=== PATIENT | male | born 1960 | race Caucasian/White ===

== ENCOUNTER 2025-04-20 14:45 | Outpatient (OUT) | payer MEDICARE, SELFPAY ==
--- OUTSIDE RECORDS SUMMARY | 2024-07-25 06:00 | XMS_ITS ---
Author Organization [facility] in [place] Address [address] [place] [address] Care Team Providers Care Route Sales Trainee Name Role Phone Prabhakar Gooden MD Primary Care Provider Teodora Stewart Unavailable [phone] Allergies Allergen (clinical drug ingredient) Drug/Non Drug Allergy documented on EMR Reaction Allergy Type Onset Date Status Lortab (acetaminophen-hydroco done) Unknown Drug Allergy Active metformin Metformin HCl Unknown Drug Allergy Act marleny Percocet (acetaminophen-oxycodo ne) Unknown Drug Allergy Active REASON FOR VISIT Nail Care Medications Medication SIG (Take, Route, Frequency, Duration) Notes Start Date End Date Status Aspirin 81 mg DAILY 10/11/2013 Activ e Tamsulosin HCl 0.4 mg 2 capsules Orally DAILY 10/11/2013 Active Toujeo SoloStar 300 UNIT/ML as directed Subcutaneous Active Allopurinol 300 mg 1 tablet DAILY Active Atorvastatin Calcium 20 MG 1 tablet Orally Once a day Active Memantine HCl 10 MG take 1 tablet by sierra twice a day for 30 Active HumaLOG 100 UNIT/ML Subcutaneous sliding scale Active Lisinopril 10 mg 1 tablet DAILY Active Ezetimibe 10 MG 1 tablet Orally Once a day Active Finasteride 5 MG 1 tablet Orally Once a day Active Clobetasol Propionate 0.05 % 1 application Externally Twice a day Active Social History Tobacco Use: Social History Observation Description Date Details (start date - stop date) Former Smoker NA - NA Tobacco Use/Smoking Question Answer Notes Patient is a former smoker How long has it been since you last smoked? 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 ; Dementia F03.90 ; Frequent falls R29.6 and Gait disturbance R26.9 Assessments Encounter Date Diagnosis (ICD Code) Assessment Notes Treatment Notes Treatment Clinical Notes Section Notes 07/25/2024 Type 2 diabetes mellitus with diabetic neuropathy, unspecified (ICD-10 - E11.40) 07/25/2024 Cognitive deficit S/P CVA (cerebrovascular accident) (ICD-10 - I69.319) 07/25/2024 Right-sided Zafar's palsy (ICD-10 - G51.0) 07/25/2024 Dementia (ICD-10 - F03.90) 07/25/2024 Frequent falls (ICD-10 - R29.6) 07/25/2024 Gait disturbance (ICD-10 - R26.9) Plan Of Treatment Next Appt Details Follow Up: 3 Months, Reason: Progress Notes * Gera WAHL ADOB:[birth year] (63 yo M)Acc No.[id number]:07/25/2024 Nurse Visit Patient: Isidro ISIDRO Gera hZu Provider: Isidro Boothe PA-C :1960 A ge:63 Y S ex:Male Date:07/25/2024 Address:[facility] [address] [place], [id number] Pcp:Prabhakar Gooden MD Check In:09:48 AM BAYLEECheck O ut:10:19 AM EST Subjective: * Chief Complaints: * N ail Care * HPI: G eneral: Patient in office today for nail care. Patients nails were trimmed and filed down to his liking without incident. * Active Problem List F03.90 Dementia Modified On:07/06/2019 Status:confirmed I69.31 CVA, old, cognitive deficits Modified On:12/27/2017 Status:confirmed Z86.61 History of meningiti s Modified On:01/27/2023 Status:confirmed R26.9 Gait disturbance Modified On:12/24/2015U Status:confirmed I69.319 Cognitive deficit S/ P CVA (cerebrovascular accident) Modified On:01/27/2023U Status:confirmed I65.23 Bilateral carotid ar sophie stenosis Modified On:04/21/2022 Status:confirmed Z86.73 History of stroke Modified On:07/06/2019 Status:confirmed G51.0 Zafar's palsy Modified On:05/04/2019 Status:confirmed F01.50 Vascular dementia wi thout behavioral disturbance Modified On:06/07/2019 Status:confirmed Z86.69 History of Zafar's pa lsy Modified On:07/06/2019 Status:confirmed R56.9 Seizures Modified On:07/06/2019 Status:confirmed R26.89 Imbalance Modified On:01/27/2023 Status:confirmed H90.3 Sensorineural hearin g loss (SNHL) of both ears Modified On:04/24/2021 Status:confirmed H91.90 Hearing loss, unspec ified hearing loss type, unspecified laterality Modified On:04/21/2022 Status:confirmed R29.6 Frequent falls Modified On:01/27/2023 Status:confirmed E11.40 Type 2 diabetes maksim itus with diabetic neuropathy, unspecified Modified On:04/28/2024 Status:confirmed * Medical History: * Surgical History: g allbladder knee replacement 10/29/2015Bowel 12/2015left knee replacment 07/2016left knee scope 2007testicle cancer 2008brain biopsy 2012 * [facility] Diagno [facility]ic [facility]: [facility] 11/28/21 * Family History: F ather: , diagnosed with Diabetes mellitus without mention of complication, type II or unspecified type, not stated as uncontrolled. M other: alive. 4 brother(s) . . Family history of cancer, diabetes mellitus No history of Dementia and Alzheimer's in his family history. * Social History: T obacco Use: T obacco Use/Smoking P atient is a f ormer smoker H ow long has it been since you last smoked??> 10 years * Medications: T akingAllopurinol 300 mg tablet 1 tablet DAILY Aspirin 81 mg DAILY Atorvastatin Calcium 20 MG Tablet 1 tablet Orally Once a day Clobetasol Propionate 0.05 % Cream 1 application Externally Twice a day Ezetimibe 10 MG Tablet 1 tablet Orally Once a day Finasteride 5 MG Tablet 1 tablet Orally Once a day HumaLOG(Insulin Lispro) 100 UNIT/ML Solution Subcutaneous , Notes to Pharmacist: sliding scaleLisinopril 10 mg tablet 1 tablet DAILY Memantine HCl 10 MG Tablet take 1 tablet by mouth twice a day Tamsulosin HCl 0.4 mg capsule 2 capsules Orally DAILY Toujeo SoloStar(Insulin Glargine (1 Unit Dial)) 300 UNIT/ML Solution Pen-injector as directed Subcutaneous Taking Allopurinol 300 mg tablet 1 tablet DAILY Taking Aspirin 81 mg DAILY Taking Atorvastatin Calcium 20 MG Tablet 1 tablet Orally Once a day Taking Clobetasol Propionate 0.05 % Cream 1 application Externally Twice a day Taking Ezetimibe 10 MG Tablet 1 tablet Orally Once a day Taking Finasteride 5 MG Tablet 1 tablet Orally Once a day Taking HumaLOG(Insulin Lispro) 100 UNIT/ML Solution Subcutaneous , Notes to Pharmacist: sliding scaleTaking Lisinopril 10 mg tablet 1 tablet DAILY Taking Memantine HCl 10 MG Tablet take 1 tablet by mouth twice a day Taking Tamsulosin HCl 0.4 mg capsule 2 capsules Orally DAILY Taking Toujeo SoloStar(Insulin Glargine (1 Unit Dial)) 300 UNIT/ML Solution Pen-injector as directed Subcutaneous * Allergies: L ortab (acetaminophen-hydrocodone): AllergyPercocet 10/325 (acetaminophen- oxycodone): AllergyMetformin HClno[Allergies Verified] Objective: * Vitals: W t:212lbs, Ht: 65.5 in, Temp:97.3F, HR:94/min, BMI:34.74Index, Pain scale:01-10, Ht-cm: 166.37 cm, Wt-k.16 kg. Assessment: * Assessment: 1. T ype 2 diabetes mellitus with diabetic neuropathy, unspecified - E11.40 (Primary) 2 .?Cognitive deficit S/P CVA (cerebrovascular accident) - I69.319 3 . R ight-sided Zafar's palsy - G51.0 4 . D ementia - F03.90 5 . F requent falls - R29.6 6 . G ait disturbance - R26.9 Plan: * Treatment: * Procedure Codes: 1 1721 DEBRIDE.NAILS;SIX OR MORE * Follow Up: 3 Months * * Sign off status: Completed Visit Status: C HK (Check Out) true * Provider: Isidro Boothe PA-C Date: 0 07/25/2024 [facility] julien/Eunice/eTransmitting on: 0 04/20/2025 02:48 PM EDT History and Physical Notes * HPI (History of Present Illness) Category Sub-Category Detail Notes Category Not es General Patient in offi ce today for nail care. Patients nails were trimmed and filed down to his liking without incident.
--- OUTSIDE RECORDS SUMMARY | 2024-10-21 06:00 | XMS_ITS ---
Author Organization [facility] in [place] Address [address] [place] [address] Care Team Providers Care Head Scorer Name Role Phone Prabhakar Gooden MD Primary Care Provider Roxanaa Luca Ozuna Unavailable [phone] REASON FOR VISIT toe nail trim Encounters Encounter Location Date Provider Diagnosis [facility] (PODIATRY) [address] [place] [address] [place] [address] 10/21/2024 Luca Moran Plan Of Treatment No Information Progress Notes * Gera WAHL ADOB:[birth year] (63 yo M)Acc No.[id number]:10/21/2024 Nurse Visit Patient: Esteban GARCIASnis Marko Provider: Juan Moran DPM, MS :1960 A ge:63 Y S ex:Male Date:10/21/2024 Address[address] [place], [id number] Pcp:Prabhakar Gooden MD Check In:10:12 AM EST Subjective: * Chief Complaints: * 1 . Toe nail trim. * HPI: G eneral: All nine of his toenails were trimmed and filed to patient's satisfaction without incident. Pt is diabetic, denies having neuropathy. * Active Problem List F03.90 Dementia Modified On:07/06/2019W/U Status:confirmed I69.31 CVA, old, cognitive deficits Modified On:12/27/2017W/U Status:confirmed Z86.61 History of meningiti s Modified On:01/27/2023W/U Status:confirmed R26.9 Gait disturbance Modified On:12/24/2015U Status:confirmed I69.319 Cognitive deficit S/ P CVA (cerebrovascular accident) Modified On:01/27/2023 Status:confirmed I65.23 Bilateral carotid ar sophie stenosis [...] unspecified Modified On:04/28/2024 Status:confirmed * Medical History: Objective: * Vitals: Assessment: Plan: * Treatment: * * Sign off status: Completed Visit Status: A RR (Check-In) true * Provider: Juan Moran DPM, MS Date: 1 12/21/2023 Generated for Crow victoria/Eunice/Sajanitting on: 0 04/20/2025 02:47 PM EDT History and Physical Notes * HPI (History of Present Illness) Category Sub-Category Detail Notes Category Not es General All nine of his toenails were trimmed and filed to patient's satisfaction without incident. Pt is diabetic, denies having neuropathy.
--- OUTSIDE RECORDS SUMMARY | 2025-01-19 05:30 | XMS_ITS ---
Author Organization [facility] in [place] Address [address] [place] [address] Care Team Providers Care Support Engineer Name Role Phone Prabhakar Gooden MD Primary Care Provider Unavaila Teodora Stiles Unavailable [phone] REASON FOR VISIT nail trim Vital Signs Temperature 97.4 degrees Fahrenheit 01/19/20 Heart Rate 95 /min 01/19/2025 Height 65.5 in 01/19/2025 Oximetry 96 % 01/19/2025 Encounters Encounter Location Date Provider Diagnosis [facility] (PODIATRY) [address] [place] [address] [place] [address] 01/19/2025 Teodora Boothe Type 2 diabetes mellitus with diabetic neuropathy, unspecified E11.40 Assessments Encounter Date Diagnosis (ICD Code) Assessment Notes Treatment Notes Treatment Clinical Notes Section Notes 01/19/2025 Type 2 diabetes mellitus with diabetic neuropathy, unspecified (ICD-10 - E11.40) Plan Of Treatment No Information Progress Notes * Gera WAHL ADOB:[birth year] (64 yo M)Acc No.[id number]:01/19/2025 Nurse Visit Patient: Isidro FELIX Gera Zhu Provider: Isidro Boothe PA-C :1960 A ge:64 Y S ex:Male Date:01/19/2025 Address:[address], [id number] Pcp:Prabhakar Gooden MD Check In:09:21 AM ESTCheck O ut:11:27 AM EST Subjective: * Chief Complaints: * N ail trim * HPI: G eneral: Patient in office today for nail care. All nine of his toenails were trimmed and filed to patient's satisfaction without incident. Pt is diabetic. * Active Problem List F03.90 Dementia Modified [...] Status:confirmed * Medical History: * Surgical History: * Hospitalization/Major Diagno stic Procedure: * Medications: Objective: * Vitals: H t: 65.5 in, Temp:97.4F, HR:95/min, Pain scale:01-10, Oxygen sat %:96%, Ht-cm: 166.37 cm. Assessment: * Assessment: 1. T ype 2 diabetes mellitus with diabetic neuropathy, unspecified - E11.40 (Primary) ? Plan: * Treatment: * Procedure Codes: * * Sign off status: Completed Visit Status: C HK (Check Out) true * Provider: Isidro Boothe PA-C Date: 0 01/19/2025 Generated for [facility] ng/Eunice/eTransmitting on: 0 04/20/2025 02:48 PM EDT History and Physical Notes * HPI (History of Present Illness) Category Sub-Category Detail Notes Category Not es General Patient in offi ce today for nail care. All nine of his toenails were trimmed and filed to patient's satisfaction without incident. Pt is diabetic.
--- OUTSIDE RECORDS SUMMARY | 2025-04-14 10:28 | XMS_ITS | Encounter Summary ---
Author Organization [employer] tem Address [id number] [address] [place] [address] Care Team Providers Care Service Administrator Name Role Phone Prabhakar Gooden MD Primary Care Provider [phone] Reason for Referral * Diagnostic Imaging (Emergency) - Closed Specialty Diagnoses / Procedures Referred By Contac t Referred To Contact Radiology Diagnoses Cerebrovascular accident (CVA), unspecified mechanism (CMS-HCC) Procedures CT angiogram carotid Fatoumata Velazquez PA-C [address] [place] [address] Phone: tel: fax: Referral ID Status Reason Start Date Expiration Date Visits Re quested Visits Authorized [id number] Closed 03/29/2025 03/29/2026 1 1 * Diagnostic Imaging (Emergency) - Closed Specialty Diagnoses / Procedures Referred By Contac t Referred To Contact Radiology Diagnoses Cerebrovascular accident (CVA), unspecified mechanism ([facility]) Procedures CT angiogram head Fatoumata Velazquez PA-C [address] [place] [address] Phone: tel: fax: Referral ID Status Reason Start Date Expiration Date Visits Re quested Visits Authorized [id number] Closed 03/29/2025 03/29/2026 1 1 Reason for Visit * Diagnostic Imaging (Emergency) - Closed Specialty Diagnoses / Procedures Referred By Contac t Referred To Contact Radiology Diagnoses Cerebrovascular accident (CVA), unspecified mechanism ([facility] Procedures CT angiogram Fatoumata Felix PA-C [address] [place] [address] Phone: tel: fax: Referral ID Status Reason Start Date Expiration Date Visits Re quested Visits Authorized [id number] Closed 03/29/2025 03/29/2026 1 1 Encounter Details Date Type Department Care Team (Latest Contact Info) Description 04/14/2025 10:28 AM EDT - 04/14/2025 11:59 PM EDT Hospital Encounter [facility] - CT Imaging [address] [place] [id number] Cerebrovascular accident (CVA), unspecified mechanism ([facility]) Discharge Disposition: Home Social History Tobacco Use Types Packs/Day Years Used Date Smoking Tobacco: Former Cigarettes Smokeless Tobacco: Never Alcohol Use Standard Drinks/Week Comments Not Currently 0 (1 standard drink = 0.6 oz pur e alcohol) PHQ-2 Answer Date Recorded Total Score 0 01/24/2025 Childcare Answer Date Recorded Childcare Unknown 05/05/2019 Employment Answer Date Recorded Employment Unknown 05/05/2019 Hunger Screening Answer Date Recorded Within the past 12 months we worried whether our food would run out before we got money to buy more. Never True 03/31/2025 Within the past 12 months th e food we bought just didn't last and we didn't have money to get more. Never True 03/31/2025 Purpose - Life Answer Date Recorded Purpose and direction in life Unknown Sex and Gender Information Value Date Recorded Sex Assigned at Not on file Legal Sex Male 11:38 AM EDT Gender Identity Not on file Sexual Orientation Not on file documented as of this encounter Medications at Time of Discharge allopurinoL (ZYLOPRIM) 300 mg tablet Take 1 tablet (300 mg total) by mouth in the morning. aspirin 81 mg Take 1 tablet (81 mg total) by mouth in the morning. blood sugar diagnostic (Outernet ULTRA TEST) stripIndications :Type 2 diabetes mellitus with hyperglycemia, with long-term current use of insulin ([facility] USE ONE STRIP TO TEST TWICE A DAY 175 strip 3 12/26/2024 ezetimibe (ZETIA) 10 mg tabletIndication s:Mixed hyperlipidemia,S tatin intolerance,Hist ory of stroke TAKE ONE TABLET BY MOUTH EVERY MORNING 90 tablet 3 12/04/2024 finasteride (PROSCAR) 5 mg tablet TAKE ONE TABLET BY MOUTH EVERY MORNING 90 tablet 1 12/30/2024 flash glucose sensor (FREESTYLE KEYSHA 2 SENSOR) kitIndications:T ype 2 diabetes mellitus without complication, with long-term current use of insulin ([facility]) APPLY SENSOR TO SKIN FOR CONTINUOUS BLOOD SUGAR MONITORING, REPLACE EVERY 14 DAYS 6 kit 3 02/27/2025 FREESTYLE KEYSHA 2 READER miscIndications: Type 2 diabetes mellitus with hyperglycemia, with long-term current use of insulin ([facility]) To use with Freestyle Keysha System 1 each 03/31/2025 insulin lispro (HumaLOG) 100 unit/mL insulin penIndications:T ype 2 diabetes mellitus with hyperglycemia, with long-term current use of insulin ([facility]) INJECT 9-11 UNITS UNDER THE SKIN THREE TIMES A DAY PLUS SLIDING SCALE, UP TO 70 UNITS DAILY . EACH PEN EXPIRES 28 AFTER FIRST PUNCTURE 30 mL 11 12/26/2024 lisinopriL (PRINIVIL,ZESTRI L) 10 mg tablet take 1 tablet by mouth daily 90 tablet 2 07/04/2024 memantine (NAMENDA) 10 mg tablet Take 1 tablet (10 mg total) by mouth in the morning and 1 tablet (10 mg total) before bedtime. pantoprazole (PROTONIX) 40 mg EC tabletIndication s:Chronic cough Take 1 tablet (40 mg total) by mouth in the morning. 30 tablet 03/17/2025 pen needle, diabetic (DROPLET PEN NEEDLE) 32 gauge x 5/32 needle USE UP TO 3 NEEDLES DAILY TO INJECT 100 each 6 11/01/2024 tamsulosin (FLOMAX) 0.4 mg capsuleIndicatio ns:Urinary retention TAKE 1 CAPSULE BY MOUTH TWICE A DAY 180 capsule 1 11/28/2024 tiotropium (SPIRIVA) 18 mcg per inhalation capsuleIndicatio ns:Chronic cough Place 1 capsule into inhaler and inhale in the morning. 30 capsule 2 03/17/2025 KERRI SALINASAR U-300 INSULIN 300 unit/mL (1.5 mL) insulin penIndications:T ype 2 diabetes mellitus with hyperglycemia, with long-term current use of insulin ([facility]) INJECT UP TO 50 UNITS UNDER THE SKIN EVERY MORNING 9 mL 12 03/31/2025 documented as of this encounter Plan of Treatment Upcoming Encounters Date Type Department Care Team (Late st Contact Info) Description 08/21/2025 8:45 AM EDT Office Visit [facility] Adult Endocrinology, A Department of [facility] [address] [facility] [address] [place] [address] Marcos Enriquez MD [address] [facility] [place] [address] 10/04/2025 1:15 PM EST Office Visit [facility] [address] [place] [address] [place] [address] Michael Solano MD [address] [place] [address] documented as of this encounter Goals Goal Patient Goal Type Associated Problems Recent Progress Patient-Stated? Author Exercise 150 minutes per week (moderate activity) Exercise No Humaira Jameson RN Note: Evaluation of progress towards goal: newly established goal Fasting Blood Glucose 70-130 Result Component No Humaira Jameson RN Note: Newly established goal documented as of this encounter Procedures Procedure Name Priority Date/Time Associated Diagnosis Comments CT CTA HEAD Routine 04/17/2025 3:14 PM EDT Cerebrovascular accident (CVA), unspecified mechanism ([facility]) CT CTA CAROTID Routine 04/17/2025 3:14 PM EDT Cerebrovascular accident (CVA), unspecified mechanism ([facility]) documented in this encounter Results * CT angiogram carotid (04/17/2025 3:14 PM EDT) Anatomical Region Laterality Modality Neuro, Neck, Vascular, Neuro [place] N/A Computed Tomography 04/19/2025 8:15 AM EDT Narrative 04/19/2025 8:24 AM EDT CLINICAL INFORMATION: Cerebrovascular accident (CVA), unspecified mechanism (CMS-HCC) TECHNIQUE: CT angiogram performed following intravenous administration of nonionic intravenous contrast. Coronal and sagittal and 3-D volume rendered maximum intensity projection images generated and reviewed under concurrent physician supervision. Automated exposure control utilized. The [place] Symptomatic Carotid Endarterectomy Trial (NASCET) method for calculating the degree of stenosis was utilized for stenosis measurements. All CT scans at this facility use dose modulation, iterative reconstruction, and/or weight based dosing when appropriate to reduce radiation dose to as low as reasonably achievable. COMPARISON: 04/26/2019 FINDINGS: The visualized portions of the aortic arch are patent. The origins of the great vessels are patent. Atherosclerotic calcifications are seen within the origins and great vessels and aortic arch. On the left, the left common carotid artery is patent. There are dense atelectatic calcifications in the left common carotid artery bifurcation extending to the origins of the left internal carotid artery. This is producing a 50% stenosis in the origin of the left internal carotid artery. The remainder of the left internal carotid arteries patent. Left external carotid arteries patent. On the right, the right common, internal, and external carotid arteries are patent. Atherosclerotic calcifications are seen however no hemodynamically significant stenoses are identified. The vertebrals are patent bilaterally. Limited images of the lung apices show right apical pleural thickening, similar to the prior study. IMPRESSION: * 50% stenosis in the origin of the left internal carotid artery, increased in severity since the previous examination dated 04/26/2019. * Otherwise normal CT angiogram of the carotid and vertebral arteries. Finalized by Yuri Montoya MD on 04/19/2025 8:24 AM Procedure Note Yuri Montoya MD - 04/19/2025 CLINICAL INFORMATION: Cerebrovascular accident (CVA), unspecified mechanism (CMS-HCC) TECHNIQUE: CT angiogram performed following intravenous administration of nonionicintravenous contrast. Coronal and sagittal and 3-D volume rendered maximum intensity projectionimages generated and reviewed under concurrent physician supervision. Automated exposure control utilized. The [place] SymptomaticCarotid Endarterectomy Trial (NASCET) method for calculating the degree ofstenosis was utilized for stenosis measurements. All CT scans at this facility use dose modulation, iterativereconstruction, and/or weight based dosing when appropriate to reduceradiation dose to as low as reasonably achievable. COMPARISON: 04/26/2019 FINDINGS: The visualized portions of the aortic arch are patent. The origins of thegreat vessels are patent. Atherosclerotic calcifications are seen withinthe origins and great vessels and aortic arch. On the left, the left common carotid artery is patent. There are denseatelectatic calcifications in the left common carotid artery bifurcationextending to the origins of the left internal carotid artery. This isproducing a 50% stenosis in the origin of the left internal carotidartery. The remainder of the left internal carotid arteries patent. Left externalcarotid arteries patent. On the right, the right common, internal, and external carotid arteriesare patent. Atherosclerotic calcifications are seen however nohemodynamically significant stenoses are identified. The vertebrals are patent bilaterally. Limited images of the lung apices show right apical pleural thickening,similar to the prior study. IMPRESSION: * 50% stenosis in the origin of the left internal carotid artery,increased in severity since the previous examination dated 04/26/2019. * Otherwise normal CT angiogram of the carotid and vertebral arteries. Finalized by Yuri Montoya MD on 04/19/2025 8:24 AM Fatoumata Velazquez PA-C [facility] Final Result * CT angiogram head (04/17/2025 3:14 PM EDT) Anatomical Region Laterality Modality Head, Neuro, Vascular, Head and Neck, Neuro [place] ra N/A Computed Tomography 04/19/2025 7:55 AM EDT Narrative 04/19/2025 7:[address] angiogram head with contrast History: Cerebrovascular accident (CVA), unspecified mechanism ([facility]) Technique: CT angiogram of the head was performed following intravenous administration of 100 cc Omnipaque 350 nonionic intravenous contrast. 3-D maximum intensity projection images generated and reviewed under concurrent physician supervision. Arterial blood flow was measured to assist the stroke clinical team in the diagnosis of large vessel occlusion in patients undergoing screening for acute ischemic stroke using Rapid AI software when clinically indicated. Automated exposure control was utilized. All CT scans at this facility use dose modulation, iterative reconstruction, and/or weight based dosing when appropriate to reduce radiation dose to as low as reasonably achievable. Findings: CTA of the head was obtained. Intravenous contrast was administered. Post processed three-dimensional maximum intensity projection imaging was acquired and evaluated. There are codominant vertebral arteries without vertebral basilar stenosis. Posterior cerebral arteries appear symmetric. Mild carotid siphon atherosclerotic changes appreciated. There appears to be 3 mm left M2 aneurysm just cephalad to sylvian fissure. No vascular truncation or occlusion appreciated. Anterior cerebral and middle cerebellar arteries normal in caliber. Juarez-white differentiation appears intact. No intracranial hemorrhage to within the limits this exam. No mass or midline shift. Ventricles normal in caliber. Impression: 3 mm left M2 aneurysm. No evidence of occlusion or significant stenosis. Finalized by Edwar Coned MD on 04/19/2025 7:58 AM Procedure Note Edwar Conde MD - 04/19/2025 CT angiogram head with contrast History: Cerebrovascular accident (CVA), unspecified mechanism ([facility]) Technique: CT angiogram of the head was performed following intravenousadministration of 100 cc Omnipaque 350 nonionic intravenous contrast. 3-Dmaximum intensity projection images generated and reviewed underconcurrent physician supervision. Arterial blood flow was measured toassist the stroke clinical team in the diagnosis of large vessel occlusion in patientsundergoing screening for acute ischemic stroke using Rapid AI softwarewhen clinically indicated. Automated exposure control was utilized. All CT scans at this facility use dose modulation, iterativereconstruction, and/or weight based dosing when appropriate to reduceradiation dose to as low as reasonably achievable. Findings: CTA of the head was obtained. Intravenous contrast was administered. Postprocessed three-dimensional maximum intensity projection imaging wasacquired and evaluated. There are codominant vertebral arteries withoutvertebral basilar stenosis. Posterior cerebral arteries appear symmetric.Mild carotid siphon atherosclerotic changes appreciated. There appears to be 3mm left M2 aneurysm just cephalad to sylvian fissure. No vasculartruncation or occlusion appreciated. Anterior cerebral and middlecerebellar arteries normal in caliber. Juarez-white differentiation appearsintact. No intracranial hemorrhage to within the limits this exam. No mass or midlineshift. Ventricles normal in caliber. Impression: 3 mm left M2 aneurysm. No evidence of occlusion or significant stenosis. Finalized by Edwar Conde MD on 04/19/2025 7:58 AM Fatoumata Velazquez PA-C IMG CT ORDERABLES Final Result documented in this encounter Visit Diagnoses Diagnosis Cerebrovascular accident (CVA), unspecified mechanism ([facility]) documented in this encounter Administered Medications Inactive Administered Medications - up to 3 most recent administrations Medication Order MAR Action Action Date Dose Rate Site iohexoL (OMNIPAQUE) 350 mg iodine/mL injection 100 mL 100 mL, intravenous, Once in imaging, contrast, Starting on Thu04/14/25 at 1029, For 1 dose, VESICANT (RED) Given 04/14/2025 11:04 AM EDT 100 mL sodium chloride 0.9 % flush 10 mL 10 mL, intravenous, As needed, line care, Starting on Thu04/14/25 at 1029 Given 04/14/2025 10:59 AM EDT 10 mL sodium chloride 0.9 % radiology injection 80 mL, intravenous, Once in imaging, pre/post contrast, Starting on Thu04/14/25 at 1029, For 1 dose Given 04/14/2025 11:03 AM EDT 80 mL documented in this encounter Additional Health Concerns Assessment Noted Time PHQ-9 Depression Total Score: 0 01/24/20 25 1:26 PM EST documented as of this encounter Care Teams Service Administrator Relationship Specialty Start Date End Date Prabhakar Gooden MD [address] [place] [address], [address] [place] [address] PCP - General Pediatrics 08/05/24 documented as of this encounter
--- OUTSIDE RECORDS SUMMARY | 2025-04-20 14:47 | XMS_ITS | Encounter Summary ---
Author Organization [facility] Address [facility] [id number] [address] [place] [address] Care Team Providers Care Upholstery Trimmer Name Role Phone Prabhakar Gooden MD Primary Care Provider [phone] Reason for Visit * Reason Comments Med Refill Encounter Details Date Type Department Care Team (Late st Contact Info) Description 09/15/2023 Refill [facility] Internal Medicine/Pediatrics [address] [place] [address] [address] [place] [phone] Prabhakar Gooden MD [address] [place] [address], [address] [place] [address] Social History Tobacco Use Types Packs/Day Years Used Date Smoking Tobacco: Former Smokeless Tobacco: Never Alcohol Use Standard Drinks/Week Comments Not Currently 0 (1 standard drink = 0.6 oz pur e alcohol) PHQ-2 Answer Date Recorded Total Score 0 04/08/2023 Childcare Answer Date Recorded Childcare Unknown 05/05/2019 Employment Answer Date Recorded Employment Unknown 05/05/2019 Purpose - Life Answer Date Recorded Purpose and direction in life Unknown Sex and Gender Information Value Date Recorded Sex Assigned at Not on file Legal Sex Male 11:38 AM EDT Gender Identity Not on file Sexual Orientation Not on file documented as of this encounter Miscellaneous Notes * Telephone Encounter - Eryn Swift CMA - 09/15/2023 6:14 PM EDT Refill request documented in this encounter Plan of Treatment Upcoming Encounters Date Type Department Care Team (Late st Contact Info) Description 08/21/2025 8:45 AM EDT Office Visit [facility] Adult Endocrinology, A Department of [facility] [address] [facility] [address] [place] [address] Marcos Enriquez MD [address] [facility] [place] [address] 10/04/2025 1:15 PM EST Office Visit [facility] [address] [place] [address] [place] [address] Michael Solano MD [address] [place] [address] documented as of this encounter Goals Goal Patient Goal Type Associated Problems Recent Progress Patient-Stated? Author Exercise 150 minutes per week (moderate activity) Exercise No Humaira Jameson, RN Note: Evaluation of progress towards goal: newly established goal Fasting Blood Glucose 70-130 Result Component No Humaira Jameson, RN Note: Newly established goal documented as of this encounter Visit Diagnoses Not on filedocumented in this encounter Additional Health Concerns Infection Onset Date Last Indicated Resolved Time Respiratory Rule-Out 01/28/2025 01/28/2025 025 2:37 AM EST Assessment Noted Time PHQ-9 Depression Total Score: 0 04/08/20 23 9:00 AM EDT documented as of this encounter Care Teams Upholstery Trimmer Relationship Specialty Start Date End Date Prabhakar Gooden MD [address] [place] [address], [address] [place], [place] [id number] PCP - General Pediatrics 08/05/24 documented as of this encounter
--- OUTSIDE RECORDS SUMMARY | 2025-04-20 14:47 | XMS_ITS | Encounter Summary ---
Author Organization [facility] Address [id number] [address] [place] [address] Care Team Providers Care Yarn Man Name Role Phone Prabhakar Gooden MD Primary Care Provider [phone] Encounter Details Date Type Department Care Team (Latest Contact Info) Description 04/14/2025 Travel Social History Tobacco Use Types Packs/Day Years [...] on file documented as of this encounter Plan of Treatment Upcoming Encounters Date Type Department Care Team (Late st Contact Info) Description 08/21/2025 8:45 AM EDT Office Visit [facility] Adult Endocrinology, A Department of [facility] [address] [facility] [address] [place] [phone] Marcos Enriquez MD [address] [facility], [address] [place] [address] 10/04/2025 1:15 PM EST Office Visit [facility] [address] [place] [address] [place] [phone] Michael Solano MD [address] [place], [place] [phone] documented as of this encounter Goals Goal [...] filedocumented in this encounter Additional Health Concerns Assessment Noted Time PHQ-9 Depression Total Score: 0 01/24/20 25 1:26 PM EST documented as of this encounter Care Teams Yarn Man Relationship Specialty Start Date End Date Prabhakar Gooden MD [address] [place] [address], [address] [place], [place] [phone] PCP - General Pediatrics 08/05/24 documented as of this encounter
--- OUTSIDE RECORDS SUMMARY | 2025-04-20 14:47 | XMS_ITS | Encounter Summary ---
Author Organization [facility] tem Address [id number] [address] [place] [address] Care Team Providers Care Telephone Advice Nurse Name Role Phone Prabhakar Gooden MD Primary Care Provider [phone] Encounter Details Date Type Department Care Team (Late Contact Info) Description 08/22/2021 Orders Only [facility] Internal Medicine[facility] [address] [place] [phone] External, Scanning Provider Social History Tobacco Use Types Packs/Day Years Used Date Smoking Tobacco: Former Smokeless Tobacco: Never Alcohol Use Standard Drinks/Week Comments Not Currently 0 (1 standard drink = 0.6 oz pur e alcohol) PHQ-2 Answer Date Recorded Total Score 0 12/13/2020 Childcare Answer Date Recorded Childcare Unknown 05/05/2019 [...] Encounters Date Type Department Care Team (Late Contact Info) Description 08/21/2025 8:45 AM EDT Office Visit [facility] Adult Endocrinology, A Department of [facility] [address] [place] [phone] Marcos Enriquez MD [address] [place] [address] 10/04/2025 1:15 PM EST Office Visit [facility] [address] [place] [address] [address] [place] [address] Michael Solano MD [address] [place] [address] documented as of this encounter Goals Goal [...] Procedure Name Priority Date/Time Associated Diagnosis Comments HEMOGLOBIN A1C Routine 08/22/2021 documented in this encounter Results * (ABNORMAL) Hemoglobin A1c (08/22/2021) External Hemoglobin A1C 9.0(A) 4 - 6 % MANUALLY TRANSCRIBED RESULTS Comment:Result attached to E ndo consult 08/22/21 08/22/2021 us Scanning Provider External LAB BLOOD ORDERABLES Final Result MANUALLY TRANSCRIBED RESULTS documented in this encounter Visit Diagnoses Not on filedocumented in this encounter Additional Health Concerns Infection Onset Date Last Indicated Resolved Time Respiratory Rule-Out 01/28/2025 01/28/2025 025 2:37 AM EST Assessment Noted Time PHQ-9 Depression Total Score: 0 12/13/19 21 3:25 PM EST documented as of this encounter Care Teams Telephone Advice Nurse Relationship Specialty Start Date End Date Prabhakar Gooden MD [address] [place] [address], [address] [place] [address] PCP - General Pediatrics 08/05/24 documented as of this encounter
--- OUTSIDE RECORDS SUMMARY | 2025-04-20 14:47 | XMS_ITS | Encounter Summary ---
Author Organization [facility] tem Address [facility] [id number] [address] [place] [address] Care Team Providers Care Building Wrecker Name Role Phone Prabhakar Gooden MD Primary Care Provider [phone] Reason for Visit * Reason Comments Med Refill Encounter Details Date Type Department Care Team (Late st Contact Info) Description 10/17/2020 Refill [facility] Internal Medicine/Pediatric[facility] [address] [place] [address] [address] [place] [phone] Prabhakar Gooden MD [address] [place] [address], [address] [place] [address] Social History Tobacco Use Types Packs/Day Years Used Date Smoking Tobacco: Former Smokeless Tobacco: Never Alcohol Use Standard Drinks/Week Comments Not Currently 0 (1 standard drink = 0.6 oz pur e alcohol) Childcare Answer Date Recorded Childcare Unknown 05/05/2019 Employment Answer Date Recorded Employment Unknown 05/05/2019 Sex and Gender Information Value Date Recorded Sex Assigned at Not on file Legal Sex Male 11:38 AM EDT Gender Identity Not on file Sexual Orientation Not on file COVID-19 Exposure Response Date Recorded In the last month, have you been in contact with someone who was confirmed or suspected to have Coronavirus / COVID-19? No / Unsure 10/10/2020 12:42 PM EST documented as of this encounter Plan of Treatment Upcoming Encounters Date Type Department Care Team (Late st Contact Info) Description 08/21/2025 8:45 AM EDT Office Visit [facility] Adult Endocrinology, A Department of [facility] [address] [facility] [address] [place] [phone] Marcos Enriquez MD [address] [facility], [address] [place] [address] 10/04/2025 1:15 PM EST Office Visit [facility] [address] [place] [address] [place] [address] [place] [address] Michael Solano MD [address] [place] [address] documented as of this encounter Goals Goal [...] Infection Onset Date Last Indicated Resolved Time COVID-19 Positive 11/28/2020 11/28/2020 12/19/2020 11:13 PM EST Respiratory Rule-Out 01/28/2025 01/28/2025 025 2:37 AM EST documented as of this encounter Care Teams Building Wrecker Relationship Specialty Start Date End Date Prabhakar Gooden MD [address] [place] [address], [address] [place], [place] [id number] PCP - General Pediatrics 08/05/24 documented as of this encounter
--- OUTSIDE RECORDS SUMMARY | 2025-04-20 14:47 | XMS_ITS | Encounter Summary ---
Author Organization [facility] [facility] tem Address [facility] [id number] [address] [place] [address] Care Team Providers Care Admissions Coordinator Name Role Phone Prabhakar Gooden MD Primary Care Provider [phone] Encounter Details Date Type Department Care Team (Late st Contact Info) Description 10/30/2023 Telephone [facility] Internal Medicine/Pediatrics [address] [place] [phone] Soraya Wahl RMA Social History Tobacco Use Types Packs/Day Years [...] got money to buy more. Never True 10/30/2023 Within the past 12 months th e food we bought just didn't last and we didn't have money to get more. Never True 10/30/2023 Purpose - Life Answer Date Recorded Purpose and direction in life Unknown Sex and Gender Information Value Date Recorded Sex Assigned at Not on file Legal Sex Male 11:38 AM EDT Gender Identity Not on file Sexual Orientation Not on file documented as of this encounter Miscellaneous Notes * Telephone Encounter - ANATOLY Onofre - 10/30/2023 1:12 PM EST Patient's , Mikala, called wanting to let you know that the track repair worker started him on medication for his cholesterol. Zetia and evolocumab. She did ask if his AST/ALT results came back better this time. She was advised these numbers have come down to wnl. Please advise if any other changes or recommendations. documented in this encounter Plan of Treatment Upcoming Encounters Date Type Department Care Team (Late st Contact Info) Description 08/21/2025 8:45 AM EDT Office Visit [facility] Adult Endocrinology, A Department of [facility] [address] [facility] [address] [place] [phone] Marcos Enriquez MD [address] [facility], [address] [place] [address] 10/04/2025 1:15 PM EST Office Visit [facility] [address] [place] [address] [address] [facility] [place] [address] Michael Solano MD [address] [place], [place] [id number] documented as of this encounter Goals Goal [...] documented as of this encounter Care Teams Admissions Coordinator Relationship Specialty Start Date End Date Prabhakar Gooden MD [address] [place] [address], [address] [place] [address] PCP - General Pediatrics 08/05/24 documented as of this encounter
--- OUTSIDE RECORDS SUMMARY | 2025-04-20 14:47 | XMS_ITS | Encounter Summary ---
Author Organization [facility] tem Address [facility] [id number] [address] [place] [address] Care Team Providers Care Electrical Laboratory Technician Name Role Phone Prabhakar Gooden MD Primary Care Provider [phone] Reason for Visit * Reason Comments Med Refill Encounter Details Date Type Department Care Team (Late st Contact Info) Description 05/04/2018 Refill [facility] [address] [place] [phone] Michael Solano MD [address] [place], [place] [phone] Urinary retention Social History Tobacco Use Types Packs/Day Years Used Date Smoking Tobacco: Former Sex and Gender Information Value Date Recorded Sex Assigned at Not on file Legal Sex Male 11:38 AM EDT Gender Identity Not on file Sexual Orientation Not on file documented as of this encounter Plan of Treatment Upcoming Encounters Date Type Department Care Team (Late st Contact Info) Description 08/21/2025 8:45 AM EDT Office Visit [facility] Adult Endocrinology, A Department of [facility] [address] [facility] [address] [place] [phone] Marcos Enriquez MD [address] [facility], [address] [place] [address] 10/04/2025 1:15 PM EST Office Visit [facility] [address] [place] [address] [place] [phone] Michael Solano MD [address] [place], [place] [phone] documented as of this encounter Visit Diagnoses Diagnosis Urinary retention Unspecified retention of urine documented in this encounter Additional Health Concerns Infection Onset Date Last Indicated Resolved Time COVID-19 Positive 11/28/2020 11/28/2020 12/19/2020 11:13 PM EST Respiratory Rule-Out 01/28/2025 01/28/2025 025 2:37 AM EST documented as of this encounter Care Teams Electrical Laboratory Technician Relationship Specialty Start Date End Date Prabhakar Godoen MD [address] [place] [address], [address] [place], [place] [phone] PCP - General Pediatrics 08/05/24 documented as of this encounter
--- OUTSIDE RECORDS SUMMARY | 2025-04-20 14:47 | XMS_ITS | Clinical Summary ---
Author Organization [employer] tem Address [id number] [address] [place] [address] Care Team Providers Care Forge Press Operator Name Role Phone Prabhakar Gooden MD Primary Care Provider [phone] Allergies Active Allergy Reactions Criticality Noted Date Comments Dulaglutide Diarrhea 08/19/2021 Hydrocodone-Acetaminophen Itching 05/06/2017 Metformin GI Disturbance 01/24/2021 Semaglutide GI Disturbance 10/21/2021 Oxycodone-Acetaminophen Itching 05/06/2017 Medications aspirin 81 mg Take 1 tablet (81 mg total) by mouth in the morning. Active memantine (NAMENDA) 10 mg tablet Take 1 tablet (10 mg total) by mouth in the morning and 1 tablet (10 mg total) before bedtime. Active lisinopriL (PRINIVIL,ZEST RIL) 10 mg tablet take 1 tablet by mouth daily 90 tablet 2 4 Active allopurinoL (ZYLOPRIM) 300 mg tablet Take 1 tablet (300 mg total) by mouth in the morning. Active pen needle, diabetic (DROPLET PEN NEEDLE) 32 gauge x 5/32 needle USE UP TO 3 NEEDLES DAILY TO INJECT 100 each 6 4 Active tamsulosin (FLOMAX) 0.4 mg capsuleIndicat ions:Urinary retention TAKE 1 CAPSULE BY MOUTH TWICE A DAY 180 capsule 1 4 Active ezetimibe (ZETIA) 10 mg tabletIndicati ons:Mixed hyperlipidemia ,Statin intolerance,Hi story of stroke TAKE ONE TABLET BY MOUTH EVERY MORNING 90 tablet 3 5 Active insulin lispro (HumaLOG) 100 unit/mL insulin penIndications :Type 2 diabetes mellitus with hyperglycemia, with long-term current use of insulin ([facility]) INJECT 9-11 UNITS UNDER THE SKIN THREE TIMES A DAY PLUS SLIDING SCALE, UP TO 70 UNITS DAILY . EACH PEN EXPIRES 28 AFTER FIRST PUNCTURE 30 mL 11 5 Active blood sugar diagnostic (ONETOUCH ULTRA TEST) stripIndicatio ns:Type 2 diabetes mellitus with hyperglycemia, with long-term current use of insulin ([facility]) USE ONE STRIP TO TEST TWICE A DAY 175 strip 3 5 Active finasteride (PROSCAR) 5 mg tablet TAKE ONE TABLET BY MOUTH EVERY MORNING 90 tablet 1 5 Active flash glucose sensor (FREESTYLE KEYSHA 2 SENSOR) kitIndications :Type 2 diabetes mellitus without complication, with long-term current use of insulin ([facility]) APPLY SENSOR TO SKIN FOR CONTINUOUS BLOOD SUGAR MONITORING, REPLACE EVERY 14 DAYS 6 kit 3 5 Active tiotropium (SPIRIVA) 18 mcg per inhalation capsuleIndicat ions:Chronic cough Place 1 capsule into inhaler and inhale in the morning. 30 capsule 2 5 Active pantoprazole (PROTONIX) 40 mg EC tabletIndicati ons:Chronic cough Take 1 tablet (40 mg total) by mouth in the morning. 30 tablet 5 Active FREESTYLE KEYSHA 2 READER miscIndication s:Type 2 diabetes mellitus with hyperglycemia, with long-term current use of insulin ([facility]) To use with Freestyle Keysha System 1 each 5 Active TOUJEO SOLOSTAR U-300 INSULIN 300 unit/mL (1.5 mL) insulin penIndications :Type 2 diabetes mellitus with hyperglycemia, with long-term current use of insulin ([facility]) INJECT UP TO 50 UNITS UNDER THE SKIN EVERY MORNING 9 mL 12 5 Active insulin glargine 300 unit/mL (TOUJEO SOLOSTAR U-300 INSULIN) 300 unit/mL (1.5 mL) insulin penIndications :Type 2 diabetes mellitus without complication, with long-term current use of insulin ([facility]) INJECT 28 UNITS UNDER THE SKIN EVERY MORNING AND 14 UNITS EVERY EVENING 9 mL 12 5 03/31/20 25 Discontinu ed(Reorder ) Active Problems Problem Noted Date Diagnosed Date Bladder outlet obstruction 06/16/2024 Presence of colostomy 04/27/2024 Mixed hyperlipidemia 01/05/2023 Elevated alkaline phosphatase level 05/13/2017 Overview (05/13/2017): ==== 05/13/2017 ==== New problem, additional workup planned. Alk: phosphatase slightly elevated. Will repeat that in about 6 weeks or so with an alpha fetoprotein return to clinic. Chest x-ray as well. Assessment & Plan (06/24/2017 4:10 PM EDT): Has been pretty stable. Over 3 years. I wrote down the information. Patient is to contact Dr. Gooden. Urinary retention 05/08/2017 Overview (11/16/2024): ==== 11/16/2024 ==== urinating very well. He is still on maximal medical therapy. Plan: Continue on with tamsulosin as well as finasteride for the next 6 months patient may taper off. Will see him back in 9-12 months ====08/24/24====s/p Urolift 08/03/24. Retention following procedure but has been fine since void trial. He reports 80-90% improvement in symptoms. PVR 10 ==== 06/06/2024 ==== cystoscopy demonstrates relatively open bladder neck suitability for UroLift. Some lateral lobe hypertrophy. We discussed observation, UroLift, Transurethral resection of the prostate. Natural history of all 3 discussed. Risks and benefits discussed as well. His most interested in pursuing UroLift to see if we can unload as bladder a little bit more to help him urinate. Plan: UroLift ==== 03/30/2024 ==== PVR now slightly improved to 167. His on maximal medical therapy. Patient feels like a restraining more to urinate. PLAN: Should get up-to-date urodynamics as well as cystoscopy. See if any intervention at the outlet be helpful. ==== 11/09/2023 ==== Established problem, worsening. Postvoid residual 307 AUA symptom Score 4/4. Patient really can not articulate the apparent satisfaction but he does tolerate the medication. Will add finasteride patient double void. Recheck PVR 4 months ==== 11/05/2022 ==== AUA symptom Score 14/2. Doing very well. Tolerating tamsulosin 2 tablets a day. Refilled today. ==== 10/21/2021 ==== AUA Symptom Score 16/2. Refilled tamsulosin recently. ==== 10/10/2020 ==== postvoid residual 62 cc. Return clinic 1 year. 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 CMG flow study asensate bladder delayed sensation 525 cc. Normal desire 672. Severe urge over 1 liter. Two Flomax a day--started spring 2015 Placed on timed voids doing better. ==== 10/11/2018 ==== still voiding. Still on 2 Flomax a day. This was refilled in April. Again reiterated the importance for time voids. ==== 10/12/2019 ==== POSTVOID RESIDUAL TODAY 26 CC. HE IS ON 2 FLOMAX A DAY. AUA Symptom Score 18/2 Assessment & Plan (11/16/2024 12:16 PM EST): Patient may restart medications of symptoms returned. Assessment & Plan (08/24/2024 11:23 AM EDT): We will see him back in October with a PSA. He will call sooner if any problems Assessment & Plan (06/06/2024 1:50 PM EDT): Does understand then he can have some temporary worsening of symptoms with UroLift them for several weeks. May require catheter postop as well for period of time. Assessment & Plan (10/21/2021 1:14 PM EST): Decision was made during today's visit to continue on with the patient's prescription drug regimen which would require refill prior to next appointment Assessment & Plan (10/10/2020 1:46 PM EST): Stay on Flomax. Refill when necessary Prescription drug management performed during today's office visit Assessment & Plan (05/13/2017 4:35 PM EDT): No interval retention. Doing well on 2 Flomax a day. Renal cyst 05/08/2017 Overview (05/08/2017): +++++++++ 05/08/2017 ALLSCRIPTS SUMMARY +++++++++++ Two thousand fourteen incidental finding left lower pole 1.5 centimeter renal cyst. Subsequent imaging study CT scan benign renal cyst Hematuria, microscopic 05/08/2017 Overview (05/08/2017): +++++++++ 05/08/2017 ALLSCRIPTS SUMMARY +++++++++++ 2013 initial hematuria evaluation negative. Check 1 more cytology then would complete Assessment & Plan (06/24/2017 4:10 PM EDT): Last cytology reviewed and negative. This completes his hematuria evaluation. Patient understands should have any gross hematuria contact. Assessment & Plan (05/13/2017 4:35 PM EDT): No gross hematuria. Cytology today. This would be the last. Prostate cancer screening 05/08/2017 Overview (11/16/2024): Started finasteride October 2023. ==== 11/16/2024 ==== PSA 0.20. ==== 11/09/2023 ==== PSA 0.67 rectal exam benign ==== 11/05/2022 ==== PSA looks good 0.44. Rectal exam benign. Continue monitor. PSA 1 year. ==== 10/21/2021 ==== psa 0.40 OTILIA is benign ==== 10/10/2020 ==== PSA 0.56. Digital rectal exam benign feeling prostate. PSA 1 year +++++++++ 05/08/2017 ALLSCRIPTS SUMMARY +++++++++++ PSA has been less than 1. ==== 10/11/2018 ==== obtain PSA 1 year. ==== 10/12/2019 ==== PSA good. Less than 0.6. Digital rectal exam benign feeling prostate. Assessment & Plan (11/16/2024 12:15 PM EST): . Assessment & Plan (05/13/2017 4:34 PM EDT): PSA 0.68. Good number. Diabetes mellitus Hypertension Dementia COPD (chronic obstructive pulmonary disease) Resolved Problems Problem Noted Date Diagnosed Date Resolved Date Severe obesity (BMI 35.0-39. 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 Doing well. +++++++++ 05/08/2017 ALLSCRIPTS SUMMARY +++++++++++ October 2008 status post left Caprice assisted radical orchiectomy with dissection in the retroperitoneum transperitoneal due to involvement of the cord. Subsequent retroperitoneal lymphadenopathy presumed disease in the chest. Status post chemotherapy. ---- requires annual alpha fetoprotein and beta HCG year 6 through 10. ==== 10/11/2018 ==== high fetoprotein beta-hCG are within normal limits. This is wonderful. No weight loss no bone pain. Patient feels well. ==== 10/12/2019 ==== no stigmata or sequelae of metastatic disease. Markers are good. He has completed his follow-up. Assessment & Plan (10/11/2018 3:55 PM EST): Repeat markers 1 year Assessment & Plan (06/24/2017 4:03 PM EDT): Alpha fetoprotein normal. Alk-phos stable for 3 years Assessment & Plan (05/13/2017 4:34 PM EDT): Beta HCG normal. Alpha fetoprotein not done. No symptomatology related to the chest. Encounters Date Type Department Care Team Description 04/14/2025 10:28 AM EDT - 04/14/2025 11:59 PM EDT Hospital Encounter [facility] - [facility] Imaging [address] [address] Cerebrovascular accident (CVA), unspecified mechanism ([facility]) Discharge Disposition: Home 04/14/2025 Travel 03/31/2025 8:30 AM EDT Office Visit [facility] Adult Endocrinology, A Department of [facility] [address] [address] Jessica Campos, PLANTING MATERIAL UNLOADER-FLORAL DESIGNER SALESPERSON Type 2 diabetes mellitus with hyperglycemia, with long-term current use of insulin ([facility]) (Primary Dx); Primary hypertension; Mixed hyperlipidemia; Type 2 diabetes mellitus without complication, with long-term current use of insulin ([facility]) 03/31/2025 Travel 03/21/2025 11:56 AM EDT - 03/21/2025 11:59 PM EDT Hospital Encounter [facility] - Lab [address] [place] [address] Anemia, unspecified type; Type 2 diabetes mellitus with hyperglycemia, with long-term current use of insulin ([facility]) Discharge Disposition: Home 03/21/2025 Travel 03/20/2025 11:53 AM EDT - 03/20/2025 11:59 PM EDT Hospital Encounter [facility] - Lab [address] [place] [address] Type 2 diabetes mellitus with hyperglycemia, with long-term current use of insulin ([facility]) Discharge Disposition: Home 03/20/2025 11:41 AM EDT - 03/20/2025 11:52 AM EDT Hospital Encounter [facility] - Radiology [address] [place] [address] Acute pain of right knee Discharge Disposition: Home 03/17/2025 1:45 PM EDT Office Visit [facility]/Pediatric [facility] [facility] [address] [place] [address] Prabhakar Gooden MD Chronic cough (Primary Dx); Acute pain of right knee 03/17/2025 Travel 03/02/2025 6:57 AM EDT - 03/02/2025 11:59 PM EDT Hospital Encounter [facility] - MRI Imaging [address] [place] [address] Memory loss; Balance problem; Moderate vascular dementia without behavioral disturbance, psychotic disturbance, mood disturbance, or anxiety (CMS-HCC) Discharge Disposition: Home 02/27/2025 9:15 AM EDT Office Visit [facility] [address] [place] [address] [address] [place] [address] Prabhakar Gooden MD Acute cough (Primary Dx); Moderate dementia with other behavioral disturbance, unspecified dementia type (CMS-HCC) 02/27/2025 Travel 02/25/2025 Refill [facility] Adult Endocrinology [address] [address] Krystle Lopez, PLANTING MATERIAL UNLOADER-FLORAL DESIGNER SALESPERSON Type 2 diabetes mellitus without complication, with long-term current use of insulin (CMS-HCC) 02/15/2025 Telephone [facility] Adult Endocr[facility]ology, A Department of [facility] [address] [address] Miryam Macedo, PLANTING MATERIAL UNLOADER-FLORAL DESIGNER SALESPERSON 01/28/2025 12:15 AM EST - 01/28/2025 5:24 AM EST Emergency [facility] - Emergency [address] [place] [phone] Hayden Cantor MD Fall, initial encounter (Primary Dx); Dementia, unspecified dementia severity, unspecified dementia type, unspecified whether behavioral, psychotic, or mood disturbance or anxiety (CMS-HCC) Discharge Disposition: Home 01/28/2025 Travel 01/24/2025 2:00 PM EST - 01/24/2025 11:59 PM EST Hospital Encounter [facility] - Lab [address] [place] [address] Lethargy; Fatigue, unspecified type Discharge Disposition: Home 01/24/2025 1:30 PM EST Office Visit [facility]/Pediatric [facility] [address] [place] [address] Prabhakar Gooden MD Fatigue, unspecified type (Primary Dx); Lethargy 01/24/2025 Travel from Last 3 Months Immunizations Immunization Administration Dates Next Due COVID-19, mRNA, LNP-S, PF, 100mcg/0.5mL Dose 04/09/2021,03/12/2021 Influenza, Im Flucelvax (Pf) 09/06/2024 Influenza, Injectable, quadr ivalent (PF) 09/03/2023,10/02/2022,09/11/2021,08/25,10/04/2015,10/17/2013,10/19/2012 Influenza, Unspecified 09/28/2020,2018,09/14/2018,09/11 Pneumococcal Polysaccharide 08/20/2009 Family History Medical History Relation Name Comments Diabetes Father Relation Name Status Comments Father Alive Mother Alive Social History Tobacco Use Types Packs/Day Years Used Date Smoking Tobacco: Former Cigarettes Smokeless Tobacco: Never Tobacco Cessation:Counseling Given: Not Answered Alcohol Use Standard Drinks/Week Comments Not Currently [...] on file Sexual Orientation Not on file Last Filed Vital Signs Vital Sign Reading Time Taken Comments Blood Pressure 118/78 03/31/2025 8:26 AM EDT Pulse 90 03/31/2025 8:26 AM EDT Temperature 36.5 C (97.7 F) 03/17/2025 1:42 PM EDT Respiratory Rate 18 03/31/2025 8:26 AM EDT Oxygen Saturation 97% 03/17/2025 1:42 PM EDT Inhaled Oxygen Concentration - - Weight 93.2 kg (205 lb 8 oz) 03/31/2025 8:26 AM EDT Height 165.1 cm (5' 5 ) 03/31/2025 8:26 AM EDT Body Mass Index 34.2 03/31/2025 8:26 AM EDT Plan of Treatment Upcoming Encounters Date Type Department Care Team (Late st Contact Info) Description 08/21/2025 8:45 AM EDT Office Visit [facility] Adult Endocrinology, A Department of [facility] [address] [place] [phone] Marcos Enriquez MD [address] [facility] [place] [address] 10/04/2025 1:15 PM EST Office Visit [facility] [address] [place] [address] [place] [address] Michael Solano MD [address] [place] [address] Health Maintenance Due Date Last Done Comments Diabetic Ophthalmology Exam 1959 Adult BMI Follow Up Plan 1977 DTaP,Tdap and Td Vaccines (1 - Tdap) 1978 Zoster (Shingles) Vaccine (1 of 2) 2009 Colonoscopy 02/23/2019 02/23/2014 COVID-19 Vaccine (4 - 2023-2 5 season) 2024 03/05/2022, 04/09/2021, 03/12/2021 Abdominal Aortic Aneurysm (A AA) Screen 2024 Fall Risk Screening 04/27/2025 04/27/2024 Medicare Annual Wellness Visit 04/27/2025 0 04/27/2024, 04/08/2023, 02/03/2022 Influenza Vaccine 07/31/2025 09/06/2024, , 10/02/2022, Additional history exists Depression Screening 01/24/2026 01/24/2025 Urine Microalbumin 03/21/2026 03/21/2025, 1 12/29/2022, 04/21/2022, Additional history exists Adult BMI Screening 03/31/2026 03/31/2025 Diabetic Foot Exam 03/31/2026 03/31/2025, 0 01/12/2023, 01/12/2023 Tobacco Screening 04/14/2026 04/14/2025 Goals Goal Patient Goal Type Associated Problems Recent Progress Patient-Stated? Author Exercise 150 minutes per week (moderate activity) Exercise No Humaira Jameson, RAHUL Note: Evaluation of progress towards goal: newly established goal Fasting Blood Glucose 70-130 Result Component No Humaira Jameson RN Note: Newly established goal Medical Devices Implanted Type Area [employer] Professor Device Identifier Shelf Expiration Date Model / Serial / Lot Implant Uro Impl Crtdg Urolift 2 Strl Use 2 Items [id number] Both To Rpl [id number] - Sna - [id number] Implanted:Qty : 3 on 08/03/2024 by Michael Solano MD at [facility] Implant Sling N/A: [employer] 09/29/2025 UL2-C / NA / [id number] Implant Uro Impl Crtdg Urolift 2 Strl Use 2 Items [id number] Both To Rpl [id number] - Sna - [id number] Implanted:Qty : 1 on 08/03/2024 by Michael Solano MD at [facility] Implant Sling N/A: [employer] 05/19/2025 UL2-C / NA / [id number] Procedures Procedure Name Priority Date/Time Associated Diagnosis Comments CT CTA CAROTID Routine 04/17/2025 3:14 PM EDT Cerebrovascular accident (CVA), unspecified mechanism ([facility]) CT CTA HEAD Routine 04/17/2025 3:14 PM EDT Cerebrovascular accident (CVA), unspecified mechanism ([facility]) POCT HEMOGLOBIN A1C Routine 03/31/2025 8 :29 AM EDT Type 2 diabetes mellitus with hyperglycemia, with long-term current use of insulin ([facility]) LIPID PROFILE Routine 03/21/2025 11:56 AM EDT Anemia, unspecified type COMPREHENSIVE METABOLIC PANEL Routine 03/21/2025 11:56 AM EDT Anemia, unspecified type TSH Routine 03/21/2025 11:56 AM EDT Anemia, unspecified type MICROALBUMIN / CREATININE URINE RATIO Routine 03/21/2025 10:00 AM EDT Type 2 diabetes mellitus with hyperglycemia, with long-term current use of insulin ([facility]) XR KNEE RT 3 VWS Routine 03/20/2025 11:4 9 AM EDT Acute pain of right knee MR BRAIN WO CONT Routine 03/02/2025 7:18 AM EDT Memory loss Balance problem Moderate vascular dementia without behavioral disturbance, psychotic disturbance, mood disturbance, or anxiety ([facility]) POCT NURSING URINE MACROSCOPIC UA Routine 01/28/2025 5:15 AM EST URINE CULTURE STAT 01/28/2025 5:00 AM EST XR CHEST 1 VW STAT 01/28/2025 2:49 AM EST XR PELVIS 1 OR 2 VWS STAT 01/28/2025 2:[address] CERVICAL SPINE WO CONT STAT 01/28/2025 2:[address] BRAIN WO CONT STAT 01/28/2025 2:49 AM EST TROP I, HIGH SENSITIVITY 1 HOUR STAT 01/28/2025 2:48 AM EST TROPONIN I, HIGH SENSITIVITY STAT 01/28/2025 1:20 AM EST BASIC METABOLIC PANEL STAT 01/28/2025 1:20 AM EST CBC WITH AUTO DIFFERENTIAL STAT 01/28/2025 1:20 AM EST SARS/FLU A+B/RSV BY NAAT/MOLECULAR (M4RT COLLECTION TUBE) STAT 01/28/2025 1:15 AM EST ECG 12-LEAD STAT 01/28/2025 12:21 AM EST CBC WITH AUTO DIFFERENTIAL Routine 01/24/2025 2:03 PM EST Fatigue, unspecified type COMPREHENSIVE METABOLIC PANEL Routine 01/24/2025 2:03 PM EST Fatigue, unspecified type THYROID PROFILE INCLUDES TSH FT4 Routine 01/24/2025 2:03 PM EST Fatigue, unspecified type URINALYSIS Routine 01/24/2025 2:03 PM EST Lethargy HM COLONOSCOPY Routine 02/23/2014 from Last 3 Months or Most Recently Relevant to Health Maintenance Results * CT angiogram head (04/17/2025 3:14 PM EDT) Anatomical Region Laterality Modality Head, Neuro, Vascular, Head and Neck, Neuro [place] ra N/A Computed Tomography 04/19/2025 7:55 AM EDT Narrative 04/19/2025 7:[address] angiogram head with contrast History: Cerebrovascular accident (CVA), unspecified mechanism (CMS-HCC) Technique: CT angiogram of the head was [...] Edwar Conde MD on 04/19/2025 7:58 AM Procedure Note Edwar Conde MD - 04/19/2025 CT angiogram head with contrast History: Cerebrovascular accident (CVA), unspecified mechanism (CMS-HCC) Technique: CT angiogram of the head was [...] Edwar Conde MD on 04/19/2025 7:58 AM us Fatoumata Velazquez PA-C IMG CT ORDERABLES Final Result * CT angiogram carotid (04/17/2025 3:14 PM EDT) Anatomical Region Laterality Modality Neuro, Neck, Vascular, Neuro [place] N/A Computed Tomography 04/19/2025 8:15 AM EDT Narrative 04/19/2025 8:24 AM EDT CLINICAL INFORMATION: Cerebrovascular accident (CVA), unspecified mechanism ([facility]) TECHNIQUE: CT angiogram performed following intravenous administration of nonionic intravenous contrast. Coronal and sagittal and 3-D volume rendered maximum intensity projection images generated and reviewed under concurrent physician supervision. Automated exposure control utilized. The [place] Symptomatic Carotid Endarterectomy Trial (NASCET) method for [...] CLINICAL INFORMATION: Cerebrovascular accident (CVA), unspecified mechanism ([facility]) TECHNIQUE: CT angiogram performed following intravenous administration of nonionicintravenous contrast. Coronal and sagittal and 3-D volume rendered maximum intensity projectionimages generated and reviewed under concurrent physician supervision. Automated exposure control utilized. The [place] SymptomaticCarotid Endarterectomy Trial (NASCET) method for calculating [...] on 04/19/2025 8:24 AM Fatoumata Velazquez PA-C IMG CT ORDERABLES Final Result * (ABNORMAL) POCT Hemoglobin A1c (03/31/2025 8:29 AM EDT) [facility] External Poct Hgb A1C 7.5(A) 4 - 7 % ADA Target < 8 No Blood 03/31/2025 8:29 AM EDT Jessica Campos PLANTING MATERIAL UNLOADER-FLORAL DESIGNER SALESPERSON POINT OF CARE TEST OR DERABLES Final Result * TSH (03/21/2025 11:56 AM EDT) [facility] TSH 1.96 0.49 - 4.67 uIU/mL 03/21/2025 6:27 PM EDT [facility] PLASMA 03/21/2025 11:5 6 AM EDT 03/21/2025 11:57 AM EDT Marcos Enriquez MD LAB BLOOD ORDERABLES Final Result [facility] [address] [facility] [place] [address] * (ABNORMAL) Lipid profile (03/21/2025 11:56 AM EDT) [facility] Cholesterol 185 150 - 200 mg/dL 03/21/2025 6:23 PM EDT [facility] Triglycerides 190(H) 27 - 150 mg/dL 03/21/2025 6:23 PM EDT [facility] HDL Cholesterol 43 >39 mg/dL 6:23 PM EDT [facility] Comment: HDL <40 mg/dL - High Risk HDL > or = 40mg/dL- Desirable HDL >60 mg/dL - Negative Risk VLDL 38(H) 0 - 30 mg/dL 03/21/2025 6:23 PM EDT [facility] LDL (calc) 104 <130 mg/dL 03/21/2025 6:23 PM EDT [facility] Comment: LDL <100 mg/dL - Desirable LDL >160 mg/dL - High Risk Cholesterol:HDL Ratio 4.3 1.0 - 5.0 03/21/2025 6:23 PM EDT [facility] PLASMA 03/21/2025 11:5 6 AM EDT 03/21/2025 11:57 AM EDT us Marcos Enriquez MD LAB BLOOD ORDERABLES Final Result [facility] [address] [facility] [address] [place] [address] * (ABNORMAL) Comprehensive metabolic panel (03/21/2025 11:56 AM EDT) Only the most recent of2 resultswithin the time period is included. Sodium 141 134 - 146 mmol/L 03/21/2025 6:23 PM [facility] Potassium, Bld 4.4 3.5 - 5.0 mmol/L 03/21/2025 6:23 PM [facility] Chloride 103 98 - 109 mmol/L 03/21/2025 6:23 PM [facility] CO2 28 22 - 32 mmol/L 03/21/2025 6:23 PM [facility] Anion gap 10 5 - 15 mmol/L 03/21/2025 6:23 PM [facility] BUN 13 5 - 27 mg/dL 03/21/2025 6:23 PM [facility] Creatinine 0.73 0.60 - 1.30 mg/dL 03/21/2025 6:23 PM [facility] Comment:METHOD TRACEABLE TO IDMS STANDARD Glucose 147(H) 65 - 99 mg/dL 03/21/2025 6:23 PM EDT [facility] Calcium 9.7 8.5 - 10.5 mg/dL 03/21/2025 6:23 PM EDT [facility] Total Protein 7.4 6.0 - 8.0 g/dL 03/21/2025 6:23 PM EDT [facility] Albumin 4.2 3.2 - 5.3 g/dL 03/21/2025 6:23 PM EDT [facility] Alkaline Phosphatase 116 39 - 130 U/L 03/21/2025 6:23 PM EDT [facility] AST 24 0 - 41 U/L 03/21/2025 6:23 PM EDT [facility] ALT 29 0 - 40 U/L 03/21/2025 6:23 PM EDT [facility] Total bilirubin 0.5 0.3 - 1.2 mg/dL 03/21/2025 6:23 PM EDT [facility] eGFR (CKD-EPI)non-rac e dependent >90 >59 ml/min/1.7 3sq.m 03/21/2025 6:23 PM EDT [facility] Comment: Reported eGFR is based on the CKD-EPI 2020 equation that does not use a race coefficient. PLASMA 03/21/2025 11:5 6 AM EDT 03/21/2025 11:57 AM EDT us Marcos Enriquez MD LAB BLOOD ORDERABLES Final Result [facility] [address], [address] [place] [address] * Microalbumin - Albumin: Creatinine Urine Ratio (03/21/2025 10:00 AM EDT) Microalbumin urine 1.4 0.0 - 1.9 mg/dL 03/21/2025 6:25 PM EDT [facility] Urine creat 173.07 mg/dL 03/21/2025 6:25 PM EDT [facility] Alb/creat ratio 8.1 0.0 - 30.0 mg/g creat 03/21/2025 6:25 PM EDT [facility] Urine / Unknown 03/21/2025 1 0:00 AM EDT 03/21/2025 11:57 AM EDT Marcos Enriquez MD URINE ORDERABLES Final Resu lt [facility] [address], [address] [place] [address] * X-ray knee right 3 views (03/20/2025 11:49 AM EDT) Anatomical Region Laterality Modality Lower Extremities, MSK, Knee Right Com puted Radiography 03/21/2025 4:30 AM EDT Narrative 03/21/2025 6:09 AM EDT EXAM: XR KNEE RT 3 VWS CLINICAL INFORMATION: Acute pain of right knee. COMPARISON: None. FINDINGS: The patient is status post knee arthroplasty. There is no convincing radiographic evidence for hardware complications or failure. There is no evidence for acute fracture or malalignment. There is a small joint effusion. IMPRESSION: Status post knee arthroplasty. There is no convincing radiographic evidence for hardware complications or failure. There is a small joint effusion. Finalized by Mariano West MD on 03/21/2025 6:09 AM Procedure Note Mariano West MD - 03/21/2025 EXAM: XR KNEE RT 3 VWS CLINICAL INFORMATION: Acute pain of right knee. COMPARISON: None. FINDINGS: The patient is status post knee arthroplasty. There is no convincingradiographic evidence for hardware complications or failure. There is noevidence for acute fracture or malalignment. There is a small jointeffusion. IMPRESSION: Status post knee arthroplasty. There is no convincing radiographicevidence for hardware complications or failure. There is a small jointeffusion. Finalized by Mariano West MD on 03/21/2025 6:09 AM us Prabhakar Gooden MD IMG DIAGNOSTIC IMAGING ORDERA BLES Final Result * MR brain without contrast (03/02/2025 7:18 AM EDT) Anatomical Region Laterality Modality Neuro, Head, Head and Neck, Neuro Covera N/A Magnetic Resonance 03/02/2025 2:34 PM EDT Narrative 03/02/2025 3:07 PM EDT EXAM: MRI BRAIN WITHOUT CONTRAST CLINICAL HISTORY: Dementia. TECHNIQUE: TECHNIQUE: Routine multiplanar multisequence MR imaging of the brain was performed without contrast. COMPARISONS: MRI dated 09/16/2023 FINDINGS: Stable appearance of old left frontoparietal. No chronic focal ovoid FLAIR hyperintensity within the left frontal white matter. There are additional mild nonaggressive white matter changes, most commonly seen in the setting of chronic ischemic small vessel disease. 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 There is a focal small old infarct of the right internal capsule, though new since 2021. There is no mass effect. There is no shift of the midline structures and the basal cisterns are widely patent. There is no evidence for ventricular outflow obstruction. There is no restricted diffusion. The midline structures and craniocervical junction are within normal limits. There is a small focus of nonaggressive polypoid mucosal thickening in the left maxillary sinus. The nasal sinuses are otherwise clear and well aerated. The mastoids are clear. IMPRESSION: 1. No acute abnormalities. 2. 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 There is a tiny old infarct of the right internal capsule, though new since 2021. There is no evidence for an acute infarct or intracranial mass effect. 3. Please see NeuroQuant report provided with the images. Finalized by Mariano West MD on 03/02/2025 3:07 PM Procedure Note Mariano West MD - 03/02/2025 EXAM: MRI BRAIN WITHOUT CONTRAST CLINICAL HISTORY: Dementia. TECHNIQUE: TECHNIQUE: Routine multiplanar multisequence MR imaging of thebrain was performed without contrast. COMPARISONS: MRI dated 09/16/2023 FINDINGS: Stable appearance of old left frontoparietal. No chronic focal ovoid FLAIRhyperintensity within the left frontal white matter. There are additionalmild nonaggressive white matter changes, most commonly seen in the settingof chronic ischemic small vessel disease. 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 There is a focal small old infarct of the rightinternal capsule, though new since 2021. There is no mass effect. There isno shift of the midline structures and the basal cisterns are widelypatent. There is no evidence for ventricular outflow obstruction. There isno restricted diffusion. The midline structures and craniocervical junctionare within normal limits. There is a small focus of nonaggressive polypoidmucosal thickening in the left maxillary sinus. The nasal sinuses areotherwise clear and well aerated. The mastoids are clear. IMPRESSION: 1. No acute abnormalities. 2. Stable chronic focal ovoid FLAIR hyperintensity within the left frontalwhite matter and tiny old infarcts of the midbrain and thalami. There is atiny old infarct of the right internal capsule, though new since 2021.There is no evidence for an acute infarct or intracranial mass effect. 3. Please see NeuroQuant report provided with the images. Finalized by Mariano West MD on 03/02/2025 3:07 PM Fatoumata Velazquez PA-C [facility] [place] ORDERABLES Final Result * (ABNORMAL) POCT Nursing Urine Macroscopic UA (01/28/2025 5:15 AM EST) Specific gravity ADELE >=1.030 1.003 - 1.035 01/28/2025 5:06 AM [facility] Leukocyte esterase ADELE Negative Negative^ Negative 01/28/2025 5:06 AM [facility] Nitrite ADELE Negative Negative^ Negative 01/28/2025 5:06 AM [facility] Ph 5.5 5.0 - 8.5 01/28/2025 5:06 AM [facility] Protein ADELE Negative Negative^ Negative mg/dL 01/28/2025 5:06 AM [facility] Urine glucose ADELE 100(A) Negative^ Negative mg/dL 01/28/2025 5:06 AM [facility] Ketones ADELE Negative Negative^ Negative mg/dL 01/28/2025 5:06 AM EST [facility] Urobilinogen ADELE 0.2 <1.1 eu/dL 01/28/2025 5:06 AM EST [facility] Bilirubin ADELE Negative Negative^ Negative 01/28/2025 5:06 AM EST [facility] Hemoglobin ADELE Negative Negative^ Negative 01/28/2025 5:06 AM EST [facility] Urine / Unknown 01/28/2025 5 :15 AM EST 01/28/2025 5:06 AM EST Hayden Cantor MD POINT OF CARE TEST ORDERABLES Fi nal Result [facility] [address], [place] [address] * Urine culture (01/28/2025 5:00 AM EST) Culture NO GROWTH AT <1000 CFU/mL 01/29/2025 8:17 AM EST [facility] Urine Urinary catheter specimen / Unknown 01/28/2025 5:00 AM EST 01/28/2025 10:05 AM EST Hayden Cantor MD MICROBIOLOGY - GENERAL ORDERABLE S Final Result [facility] [address], [address] [place] [address] * CT cervical spine without contrast (01/28/2025 2:49 AM EST) Anatomical Region Laterality Modality MSK, Neuro, Spine, C-spine, Spine Covera N/A Computed Tomography 01/28/2025 2:59 AM EST Narrative 01/28/2025 3:00 AM EST STUDY: Cervical spine CT without contrast CLINICAL HISTORY: Acute cervical neck pain. Fall. COMPARISON:None TECHNIQUE: CT cervical spine was performed utilizing thin section CT imaging without contrast. Coronal and sagittal reformatted images were obtained and reviewed. Automated exposure control was utilized. FINDINGS: The cervical spine is visualized from the skull base through T1. There is degenerative disc disease most pronounced at C3 C4 C4 C5 C5 C6. Facets are well aligned. Atlantoaxial junction is unremarkable. The dens is intact. The lateral masses of C1 are well aligned with C2. Bilateral carotid calcifications. There is right apical pleural thickening and scarring. Please note, ligamentous injury is not well evaluated on a neutral position CT. If concern for ligamentous injury consider flex-ex radiographs or MRI. IMPRESSION: 1. Advanced multilevel degenerative disc disease without evidence of acute osseous abnormality. All CT scans at this facility use dose modulation, iterative reconstruction, and/or weight based dosing when appropriate to reduce radiation dose to as low as reasonably achievable. Finalized by Michael Carlisle MD on 01/28/2025 3:00 AM Procedure Note Michael Carlisle MD - 01/28/2025 STUDY: Cervical spine CT without contrast CLINICAL HISTORY: Acute cervical neck pain. Fall. COMPARISON:None TECHNIQUE: CT cervical spine was performed utilizing thin section CTimaging without contrast. Coronal and sagittal reformatted images wereobtained and reviewed. Automated exposure control was utilized. FINDINGS: The cervical spine is visualized from the skull base through T1. There isdegenerative disc disease most pronounced at C3 C4 C4 C5 C5 C6. Facetsare well aligned. Atlantoaxial junction is unremarkable. The dens isintact. The lateral masses of C1 are well aligned with C2. Bilateral carotid calcifications. There is right apical pleuralthickening and scarring. Please note, ligamentous injury is not well evaluated on a neutralposition CT. If concern for ligamentous injury consider flex-exradiographs or MRI. IMPRESSION: 1. Advanced multilevel degenerative disc disease without evidence of acuteosseous abnormality. All CT scans at this facility use dose modulation, iterativereconstruction, and/or weight based dosing when appropriate to reduceradiation dose to as low as reasonably achievable. Finalized by Michael Carlisle MD on 01/28/2025 3:00 AM Hayden Cantor MD [facility] [place] ORDERABLES Final Result * X-ray pelvis 1 or 2 views (01/28/2025 2:49 AM EST) Anatomical Region Laterality Modality MSK, Pelvis N/A Computed Radiogr aphy 01/28/2025 2:50 AM EST Narrative 01/28/2025 2:52 AM EST XR PELVIS 1 OR 2 VWS INDICATION: fall , pain COMPARISON: 06/09/2013 IMPRESSION: 1. No definitive acute fracture or dislocation noted intrinsic limitations of single view. Consider additional views or CT depending on suspicion. 2. Left hip hemiarthroplasty. Degenerative changes of the SI joints, right hip. Finalized by Michael Baron MD on 01/28/2025 2:52 AM Procedure Note Michael Baron MD - 01/28/2025 XR PELVIS 1 OR 2 VWS INDICATION: fall , pain COMPARISON: 06/09/2013 IMPRESSION: 1. No definitive acute fracture or dislocation noted intrinsiclimitations of single view. Consider additional views or CT depending onsuspicion. 2. Left hip hemiarthroplasty. Degenerative changes of the SI joints,right hip. Finalized by Michael Baron MD on 01/28/2025 2:52 AM Hayden Cantor MD IMG DIAGNOSTIC IMAGING ORDERABLE S Final Result * X-ray chest 1 view (01/28/2025 2:49 AM EST) Anatomical Region Laterality Modality Body, Chest N/A Computed Radiogr aphy 01/28/2025 2:52 AM EST Narrative 01/28/2025 2:53 AM EST Single view chest History: Pain after fall. Comparison: 07/20/2024 Findings: Stable cardiomediastinal silhouette. Similar bandlike opacity at the left lung base partially silhouetting the diaphragm, presumably related to scarring or atelectasis. No significant effusion. No pneumothorax. Impression: No acute cardiopulmonary process. Finalized by Michael Baron MD on 01/28/2025 2:53 AM Procedure Note Michael Baron MD - 01/28/2025 Single view chest History: Pain after fall. Comparison: 07/20/2024 Findings: Stable cardiomediastinal silhouette. Similar bandlike opacity at the leftlung base partially silhouetting the diaphragm, presumably related toscarring or atelectasis. No significant effusion. No pneumothorax. Impression: No acute cardiopulmonary process. Finalized by Michael Baron MD on 01/28/2025 2:53 AM us Hayden Cantor MD IMG DIAGNOSTIC IMAGING ORDERABLE S Final Result * CT brain without contrast (01/28/2025 2:49 AM EST) Anatomical Region Laterality Modality Neuro, Head, Head and Neck, Neuro Covera N/A Computed Tomography 01/28/2025 2:53 AM EST Narrative 01/28/2025 2:[address] OF THE HEAD WITHOUT CONTRAST INDICATION: Pain. Head trauma, moderate-severe COMPARISON: 06/30/2019. TECHNIQUE: CT was obtained of the head without contrast. FINDINGS: INTRACRANIAL: Normal configuration of the ventricles and sulci. Patchy hypoattenuation in the left centrum semiovale . Hypoattenuation in the bilateral basal ganglial regions (progressed on the right ). No mass effect or midline shift. Maintained juarez-white differentiation otherwise without identified intracranial hemorrhage.. SOFT TISSUES and ORBITS: Orbits are unremarkable. Soft tissues within normal limits. CALVARIUM: No depressed calvarial fracture or suspicious lesion. Postoperative changes left gonzalo hole. SINUSES AND MASTOID AIR CELLS: Well aerated. IMPRESSION: No acute intracranial abnormality. Presumed chronic/senescent changes as above All CT scans at this facility use dose modulation, iterative reconstruction, and/or weight based dosing when appropriate to reduce radiation dose to as low as reasonably achievable. Finalized by Michael Baron MD on 01/28/2025 2:59 AM Procedure Note Michael Baron MD - 01/28/2025 CT OF THE HEAD WITHOUT CONTRAST INDICATION: Pain. Head trauma, moderate-severe COMPARISON: 06/30/2019. TECHNIQUE: CT was obtained of the head without contrast. FINDINGS: INTRACRANIAL: Normal configuration of the ventricles and sulci. Patchy hypoattenuationin the left centrum semiovale . Hypoattenuation in the bilateral basalganglial regions (progressed on the right ). No mass effect or midlineshift. Maintained juarez- white differentiation otherwise without identified intracranial hemorrhage.. SOFT TISSUES and ORBITS: Orbits are unremarkable. Soft tissues within normal limits. CALVARIUM: No depressed calvarial fracture or suspicious lesion. Postoperativechanges left gonzalo hole. SINUSES AND MASTOID AIR CELLS: Well aerated. IMPRESSION: No acute intracranial abnormality. Presumed chronic/senescent changes as above All CT scans at this facility use dose modulation, iterativereconstruction, and/or weight based dosing when appropriate to reduceradiation dose to as low as reasonably achievable. Finalized by Michael Baron MD on 01/28/2025 2:59 AM Hayden Cantor MD IMG CT ORDERABLES Final Result * Troponin I, High Sensitivity 1 Hour (01/28/2025 2:48 AM EST) 1 Hour Trop I, High Sensitivity 4 <21 ng/L 01/28/2025 3:16 AM EST [facility] Blood Serum / Unknown 01/28/2025 2 :48 AM EST 01/28/2025 2:50 AM EST Hayden Cantor MD LAB BLOOD ORDERABLES Final Resul t Performing Organization Address City/[facility]/ZIP Co de Phone Number [address] [address] * Troponin I, High Sensitivity (01/28/2025 1:20 AM EST) Troponin I, High Sensitivity 3 <21 ng/L 01/28/2025 2:07 AM EST [facility] Blood Serum / Unknown 01/28/2025 1 :20 AM EST 01/28/2025 1:37 AM EST Hayden Cantor MD LAB BLOOD ORDERABLES Final Resul t Performing Organization Address City/[facility]/ZIP Co de Phone Number [address] [address] * (ABNORMAL) CBC auto differential (01/28/2025 1:20 AM EST) Only the most recent of2 resultswithin the time period is included. White Blood Cells 12.6(H) 4.0 - 11.0 X10E9/L 01/28/2025 1:50 AM [facility] RBC count 4.64 4.10 - 5.70 X10E12/L 01/28/2025 1:50 AM [facility] Hemoglobin 13.8 13.0 - 17.0 g/dL 01/28/2025 1:50 AM [facility] Hematocrit 40.9 39 - 49 % 01/28/2025 1:50 AM [facility] MCV 88 80 - 100 fL 01/28/2025 1:50 AM [facility] MCH 29.9 27 - 34 pg 01/28/2025 1:50 AM [facility] MCHC 33.9 32 - 36 g/dL 01/28/2025 1:50 AM [facility] RDW 14.1 11.5 - 15.0 % 01/28/2025 1:50 AM [facility] Platelets 396 150 - 450 X10E9/L 01/28/2025 1:50 [facility] MPV 7.8 7 - 12 fL 01/28/2025 1:50 AM [facility] % neutrophils 68.2 % 01/28/2025 1:50 AM [facility] % lymphocytes 21.0 % 01/28/2025 1:50 AM [facility] % monocytes 7.3 % 01/28/2025 1:50 AM [facility] % eosinophils 2.1 % 01/28/2025 1:50 AM [facility] % Basophils 1.4 % 01/28/2025 1:50 AM [facility] Neutrophils Absolute (A) 8.6(H) 1.5 - 6.6 X10E9/L 01/28/2025 1:50 [facility] Lymphocytes Absolute 2.7 1.0 - 3.5 X10E9/L 01/28/2025 1:50 AM [facility] Monocytes Absolute 0.9 0 - 0.9 X10E9/L 01/28/2025 1:50 AM [facility] Eosinophils Absolute 0.3 0.0 - 0.4 X10E9/L 01/28/2025 1:50 AM [facility] Basophils Absolute 0.2 0.0 - 0.2 X10E9/L 01/28/2025 1:50 AM [facility] Blood Blood / Unknown 01/28/2025 1 :20 AM EST 01/28/2025 1:37 AM EST us Hayden Cantor MD LAB BLOOD ORDERABLES Final Resul t [address], [place] [address] * (ABNORMAL) Basic Metabolic Panel (01/28/2025 1:20 AM EST) Sodium 135 134 - 146 mmol/L 01/28/2025 1:54 AM [facility] Potassium, Bld 3.7 3.5 - 5.0 mmol/L 01/28/2025 1:54 AM [facility] Chloride 106 98 - 109 mmol/L 01/28/2025 1:54 AM [facility] CO2 25 22 - 32 mmol/L 01/28/2025 1:54 AM [facility] Anion gap 4(L) 5 - 15 mmol/L 01/28/2025 1:54 AM [facility] BUN 22 5 - 27 mg/dL 01/28/2025 1:55 AM [facility] Creatinine 1.02 0.70 - 1.20 mg/dL 01/28/2025 1:55 AM [facility] Comment:METHOD TRACEABLE TO IDMS STANDARD Glucose 129(H) 65 - 99 mg/dL 01/28/2025 1:54 AM [facility] Calcium 9.1 8.5 - 10.5 mg/dL 01/28/2025 1:54 AM [facility] eGFR (CKD-EPI)non-ra ce dependent 82 >59 ml/min/1.7 3sq.m 01/28/2025 1:55 AM EST [facility] Comment: Reported eGFR is based on the CKD-EPI 2020 equation that does not use a race coefficient. Blood (PLASMA) 01/28/2025 1: 20 AM EST 01/28/2025 1:37 AM EST us Hayden Cantor MD LAB BLOOD ORDERABLES Final Resul t [address] [place] [address] * SARS/FLU A+B/RSV by NAAT/Molecular (M4RT Collection Tube) (01/28/2025 1:15 AM EST) FLU A PCR Negative Negative^Ne gative 01/28/2025 2:37 AM EST [facility] FLU B PCR Negative Negative^Ne gative 01/28/2025 2:37 AM EST [facility] RSV by PCR Negative Negative^Ne gative 01/28/2025 2:37 AM EST [facility] SARS CoV 2 BY PCR Not Detected Not Detected^No t Detected 01/28/2025 2:37 AM [facility] Comment: NOTE The Xpert Xpress SARS-CoV-2/Flu/RSV Plus test is a rapid, multiplexed real-time RT-PCR test intended for the simultaneous qualitative detection and differentiation of SARS-CoV-2, influenza A, influenza B and respiratory syncytial virus (RSV) viral RNA from individuals suspected of respiratory viral infection consistent with COVID-19 by their healthcare provider. This test has not been validated in asymptomatic patients. The Xpert Xpress SARS-CoV-2 test is intended for use by qualified and trained operators who are performing tests using either [employer] Dandelion DX or [employer] Virtus systems and is limited to laboratories that meet the CLIA requirements to perform high and moderate complexity tests. The Xpert Xpress SARS-CoV-2/Flu/RSV Plus is only for use under the Food and Drug Administration's Emergency Use Authorization. Results are for the simultaneous detection and differentiation of SARS-CoV-2, influenza A, influenza B and RSV nucleic acids in clinical specimens. SARS-CoV-2, influenza A, influenza B and RSV RNA identified by this test are generally detectable in upper respiratory samples during the acute phase of infection. Positive results are indicative of the presence of the identified virus, but do not rule out bacterial infection or co-infection with other pathogens not detected by this test. Clinical correlation with patient history and other diagnostic information is necessary to determine patient infection status. The agent detected may not be the definite cause of disease. Negative results do not preclude SARS-CoV-2, influenza A, influenza B and RSV infection and should not be used as the sole basis for treatment or other patient management decisions. Negative results must be combined with clinical observations, patient history and epidemiological information. An Invalid result may occur with specimen-associated inhibition unable to be resolved with specimen repeat. Fact Sheet for Healthcare Providers: https://www.fda.gov/media/897072/download Fact Sheet for Patients: https://www.fda.gov/media/402333/download Nasopharyngeal structure / Unknown 01/28/2025 1:15 AM EST 01/28/2025 1:38 AM EST Hayden Cantor MD MICROBIOLOGY - GENERAL [place] [address] * ECG 12 lead (01/28/2025 12:21 AM EST) 01/28/2025 12:2 1 AM EST Narrative [facility] - 01/28/2025 5:50 AM EST Hayden Cantor MD ECG ORDERABLES Final Result [facility] * Thyroid profile includes TSH FT4 (01/24/2025 2:03 PM EST) TSH 1.67 0.49 - 4.67 uIU/mL 01/24/2025 6:02 PM EST [facility] T4, free 0.83 0.61 - 1.60 ng/dL 01/24/2025 6:06 PM EST [facility] PLASMA 01/24/2025 2:03 PM EST 01/24/2025 2:05 PM EST us Prabhakar Gooden MD LAB BLOOD ORDERABLES Final Re sult [facility] [address], [address] [place] [address] * Urinalysis (clean catch) (01/24/2025 2:03 PM EST) Color YELLOW YELLOW^YE LLOW 01/24/2025 5:36 PM [facility] Turbidity CLEAR CLEAR^OLIVA AR 01/24/2025 5:36 PM [facility] Specific gravity 1.016 1.003 - 1.035 01/24/2025 5:36 PM [facility] Nitrite Negative Negative^ Negative 01/24/2025 5:36 PM [facility] Ph urine 5.5 5.0 - 8.5 01/24/2025 5:36 PM [facility] Leukocyte esterase Negative Negative^ Negative 01/24/2025 5:36 PM [facility] Protein Negative Negative^ Negative mg/dL 01/24/2025 5:36 PM [facility] Glucose, Ur Negative Negative^ Negative mg/dL 01/24/2025 5:36 PM [facility] Ketones urine Negative Negative^ Negative mg/dL 01/24/2025 5:36 PM [facility] Urobilinogen <1.1 <1.1 eu/dL 01/24/2025 5:36 PM [facility] Bilirubin, urine Negative Negative^ Negative 01/24/2025 5:36 PM [facility] Hemoglobin Negative Negative^ Negative 01/24/2025 5:36 PM [facility] Urine / Unknown 01/24/2025 2 :03 PM EST 01/24/2025 2:04 PM EST us Prabhakar Gooden MD URINE ORDERABLES Final Result [facility] [address], [address] [place] [address] * HM COLONOSCOPY (02/23/2014) 02/23/2014 us Scanning Provider External HEALTH MAINTENANCE Fi nal Result [facility] EXTERNAL NON-INTERFACED REF LAB [id number] 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
--- OUTSIDE RECORDS SUMMARY | 2025-04-20 14:48 | XMS_ITS | Encounter Summary ---
Author Organization [facility] Address [id number] [address] [place] [address] Care Team Providers Care Pipeman Name Role Phone Prabhakar Gooden MD Primary Care Provider [phone] Reason for Visit * Reason Comments Med Refill Encounter Details Date Type Department Care Team (Late st Contact Info) Description 12/03/2021 Refill [facility] [address] [place] [address] 1 [place] [address] Prabhakar Gooden MD [address] [place] [address], 1 [place] [address] Social History Tobacco Use Types [...] Telephone Encounter - Eryn Swift CMA - 12/03/2021 12:09 PM EST Script was refilled 11/15/21 with a refill documented in this encounter Plan of Treatment Upcoming Encounters Date Type Department Care Team (Late st Contact Info) Description 08/21/2025 8:45 AM EDT Office Visit [facility] Adult [facility]ology, A Department of [facility] [address] [facility] [address] [place] [phone] Marcos Enriquez MD [address] [facility], [address] [place] [address] 10/04/2025 1:15 PM EST Office Visit [facility] [address] [place] [address] [place] [address] [place] [address] Michael Solano MD [address] [place] [address] documented as of this encounter Goals Goal [...] documented as of this encounter Care Teams Pipeman Relationship Specialty Start Date End Date Prabhakar Gooden MD [address] [place] [address], [address] [place], [place] [address] PCP - General Pediatrics 08/05/24 documented as of this encounter
--- OUTSIDE RECORDS SUMMARY | 2025-04-20 14:48 | XMS_ITS | Encounter Summary ---
Author Organization [employer] Sys [employer] Address [facility] [id number] [address] [place] [address] Care Team Providers Care Loader Unloader Name Role Phone Prabhakar Gooden MD Primary Care Provider [phone] Encounter Details Date Type Department Care Team (Late st Contact Info) Description 12/24/2022 Telephone [facility] [address] [place] [address] Jessica Campos, SYSTEM DISPATCHER-DIRECTOR RADIATION ONCOLOGY [address] [place] [address] Social History Tobacco Use Types Packs/Day Years Used Date Smoking Tobacco: Former Smokeless Tobacco: Never Alcohol Use Standard Drinks/Week Comments Not Currently 0 (1 standard drink = 0.6 oz pur e alcohol) PHQ-2 Answer Date Recorded Total Score 0 02/03/2022 Childcare Answer Date Recorded Childcare Unknown 05/05/2019 [...] encounter Miscellaneous Notes * Telephone Encounter - Chavamichael Angeline - 12/24/2022 9:57 AM EST Pt is out of levemir, and it is on back order. asked for a substittute please * Telephone Encounter - SHAYNE Salgado - 12/24/2022 9:57 AM EST Changed to Toujeo. Script sent to Cyn. documented in this encounter Plan of Treatment Upcoming Encounters Date Type Department Care Team (Late st Contact Info) Description 08/21/2025 8:45 AM EDT Office Visit [facility] Adult Endocrinology, A Department of [facility] [address] [facility] [address] [place] [address] Marcos Enriquez MD [address] [facility], [address] [place] [address] 10/04/2025 1:15 PM EST Office Visit [facility] [address] [place] [address] [address] [facility] [place] [address] Michael Solano MD [address] [place] [address] documented as of this encounter Goals Goal [...] Noted Time PHQ-9 Depression Total Score: 0 02/04/20 22 1:00 PM EST documented as of this encounter Care Teams Loader Unloader Relationship Specialty Start Date End Date Prabhakar Gooden MD [address] [place] [address], [address] [place] [address] PCP - General Pediatrics 08/05/24 documented as of this encounter
--- OUTSIDE RECORDS SUMMARY | 2025-04-20 14:48 | XMS_ITS | Clinical Summary ---
Author Organization [facility] Address [address] [place] [address] Care Team Providers Care Color Consultant Name Role Phone Prabhakar Gooden MD Primary Care Provider [phone] Allergies Active Allergy Reactions Criticality Noted Date Comments Hydrocodone-Acetaminophen 03/04/2018 Oxycodone-Acetaminophen 03/04/2018 Social History Tobacco Use Types Packs/Day Years Used Date Smoking Tobacco: Every Day Alcohol Use Standard Drinks/Week Comments No 0 (1 standard drink = 0.6 oz pur e alcohol) Sex and Gender Information Value Date Recorded Sex Assigned at Not on file Legal Sex Male 3:26 PM EST Gender Identity Not on file Sexual Orientation Not on file Plan of Treatment Health Maintenance Due Date Last Done Comments Depression Screen 1971 HIV screen 1974 Hepatitis C screen 1977 DTaP/Tdap/Td vaccine (1 - Tdap) 1978 Lipids 1999 Colonoscopy 2004 Colorectal Cancer Screen 2004 FIT/FOBT: Average risk 2004 Fecal-DNA (Cologuard): Average risk 2004 Sigmoidoscopy/CT colonography 2004 Shingles vaccine (1 of 2) 2009 Pneumococcal 50+ years Vaccine (2 of 2 - PCV) 08/20/2010 08/20/2009 COVID-19 Vaccine (3 - season) 2024 04/09/2021, 03/12/2021 AAA screen 2024 Flu vaccine (Season Ended) 06/30/202510/02, 09/11/2021, 09/28/2020, Additional history exists Respiratory Syncytial Virus (RSV) or age 60 yrs+ (1 - 1-dose 75+ series) 2034 Pneumococcal 0-49 years Vaccine Discontinued 08/20/2009 Hepatitis A vaccine Aged Out No longe r eligible based on patient's age to complete this topic Hepatitis B vaccine Aged Out No longe r eligible based on patient's age to complete this topic Hib vaccine Aged Out No longer eligi ble based on patient's age to complete this topic Meningococcal (ACWY) vaccine Aged Out No longer eligible based on patient's age to complete this topic Meningococcal B vaccine Aged Out No l onger eligible based on patient's age to complete this topic Polio vaccine Aged Out No longer elig ible based on patient's age to complete this topic Care Teams Color Consultant Relationship Specialty Start Date End Date Prabhakar Gooden MD PCP - General 08/16/12
--- OUTSIDE RECORDS SUMMARY | 2025-04-20 14:48 | XMS_ITS | Encounter Summary ---
Author Organization [employer] tem Address [facility] [place]-[id number] [address] [place] [address] Care Team Providers Care Senior Project Manager Name Role Phone Prabhakar Gooden MD Primary Care Provider [phone] Reason for Visit * Reason Onset Date Comments Urinary Retention 08/05/2024 Encounter Details Date Type Department Care Team (Late st Contact Info) Description 08/05/2024 Telephone [facility] [address] [place] [phone] Mariaa Graves Urinary Retention Social History Tobacco Use Types Packs/Day Years Used Date Smoking Tobacco: Former Cigarettes Smokeless Tobacco: Never Alcohol Use Standard Drinks/Week Comments Not Currently 0 (1 standard drink = 0.6 oz pur e alcohol) PHQ-2 Answer Date Recorded Total Score 0 04/27/2024 Childcare Answer Date Recorded Childcare Unknown 05/05/2019 Employment Answer Date Recorded Employment Unknown 05/05/2019 Hunger Screening Answer Date Recorded Within the past 12 months we worried whether our food would run out before we got money to buy more. Never True 08/08/2024 Within the past 12 months th e food we bought just didn't last and we didn't have money to get more. Never True 08/08/2024 Purpose - Life Answer Date Recorded Purpose and direction in life Unknown Sex and Gender Information Value Date Recorded Sex Assigned at Not on file Legal Sex Male 11:38 AM EDT Gender Identity Not on file Sexual Orientation Not on file documented as of this encounter Miscellaneous Notes * Telephone Encounter - Mariaa Graves - 08/05/2024 5:42 PM EDT Contract: Ann-Marie Soto [facility] RM ER8 re urinary retention * Telephone Encounter - Mariaa Graves - 08/05/2024 5:42 PM EDT Numeric page back to [facility] documented in this encounter Plan of Treatment Upcoming Encounters Date Type Department Care Team (Late st Contact Info) Description 08/21/2025 8:45 AM EDT Office Visit [facility] Adult Endocrinology, A Department of [facility] [address] [facility] [address] [place] [address] Marcos Enriquez MD [address] [facility], [address] [place] [address] 10/04/2025 1:15 PM EST Office Visit [facility] [address] [place] [address] [place] [address] Michael Solano MD [address] [place] [address] documented as of this encounter Goals Goal [...] Noted Time PHQ-9 Depression Total Score: 0 04/27/20 24 10:00 AM EDT documented as of this encounter Care Teams Senior Project Manager Relationship Specialty Start Date End Date Prabhakar Gooden MD [address] [place] [address], 1 [place] [address] PCP - General Pediatrics 08/05/24 documented as of this encounter
--- OUTSIDE RECORDS SUMMARY | 2025-04-20 14:48 | XMS_ITS | Encounter Summary ---
Author Organization [facility] tem Address [facility] [id number] [address] [place] [address] Care Team Providers Care Automobile Or Truck Rental Dispatcher Name Role Phone Prabhakar Gooden MD Primary Care Provider [phone] Encounter Details Date Type Department Care Team (Late Contact Info) Description 04/03/2022 Orders Only [facility] Internal Medicine/P[facility]s [address] [place] [phone] External, Scanning Provider Social History Tobacco Use [...] 08/21/2025 8:45 AM EDT Office Visit [facility] Adult Endocr[facility]ology, A Department of [facility] [address] [place] [phone] Marcos Enriquez MD [address] [place] [address] 10/04/2025 1:15 PM EST Office Visit [facility] [address] [place] [address] [place] [address] Michael Solano MD [address] [place] [address] documented as of this encounter Goals Goal Patient Goal Type Associated Problems Recent Progress Patient-Stated? Author Exercise 150 minutes per week (moderate activity) Exercise No Humaira Jameson RN Note: Evaluation of progress towards goal: newly established goal Fasting Blood Glucose 70-130 Result Component No Humaria Jameson RN Note: Newly established goal documented as of this encounter Procedures Procedure Name Priority Date/Time Associated Diagnosis Comments HEMOGLOBIN A1C Routine 03/24/2022 documented in this encounter Results * (ABNORMAL) Hemoglobin A1c (03/24/2022) External Hemoglobin A1C 8.8(A) 4 - 6 % MANUALLY TRANSCRIBED RESULTS Comment:result in endocrinol ogy consult 03/24/2022 us Scanning Provider External LAB BLOOD ORDERABLES Final Result MANUALLY TRANSCRIBED RESULTS documented in this encounter Visit Diagnoses Not on filedocumented in this encounter Additional Health Concerns Infection Onset Date Last Indicated Resolved Time Respiratory Rule-Out 01/28/2025 01/28/2025 025 2:37 AM EST Assessment Noted Time PHQ-9 Depression Total Score: 0 02/04/20 22 1:00 PM EST documented as of this encounter Care Teams Automobile Or Truck Rental Dispatcher Relationship Specialty Start Date End Date Prabhakar Gooden MD [address] [place] [address], [address] [place], [place] [address] PCP - General Pediatrics 08/05/24 documented as of this encounter
--- OUTSIDE RECORDS SUMMARY | 2025-04-20 14:48 | XMS_ITS | Patient Health Record ---
Author Organization [facility] [place] Address [address] [place] [address] Care Team Providers Care Account Manager Name Role Phone Prabhakar Gooden MD Primary Care Provider Luca Romero Unavailable [phone] TlJennaTeodora Unavailable [phone] Allergies Allergen (clinical drug ingredient) Drug/Non Drug Allergy documented on EMR Reaction Allergy Type Onset Date Status Lortab (acetaminophen-hydroco done) Unknown Drug Allergy Active metformin Metformin HCl Unknown Drug Allergy Act marleny Percocet (acetaminophen-oxycodo ne) Unknown Drug Allergy Active Reason For Referral No Information Medications Medication SIG (Take, Route, Frequency, Duration) Notes Start Date End Date Status Aspirin 81 mg DAILY 10/11/2013 Activ e Tamsulosin HCl 0.4 mg 2 capsules Orally DAILY 10/11/2013 Active Toujeo SoloStar 300 UNIT/ML as directed Subcutaneous Active Allopurinol 300 mg 1 tablet DAILY Active Memantine HCl 10 MG take 1 tablet by sierra twice a day for 30 Active HumaLOG 100 UNIT/ML Subcutaneous sliding scale Active Lisinopril 10 mg 1 tablet DAILY Active Ezetimibe 10 MG 1 tablet Orally Once a day Active Finasteride 5 MG 1 tablet Orally Once a day Active Atorvastatin Calcium 20 MG 1 tablet [...] since you last smoked? 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 Problem Seizure (09287316) Seizures (R56.9) Active confirmed Problem 70314993 Dementia (F03.90) Active confirmed Problem 347761099 Imbalance (R26.89) Active confirmed Problem 23488661 Gait disturbance (R26.9) Active confirmed Problem 914941742 CVA, old, cognitive deficits (I69.31) Active confirmed Problem 010588729 History of stroke (Z86.73) Active confirmed Problem 85938071 Bilateral carotid artery stenosis (I65.23) Active confirmed Problem 634644744 Frequent falls (R29.6) Active confirmed Problem 260367882 History of meningitis (Z86.61) Active confirmed Problem History of Zafar's palsy (303365073) History of Zafar's palsy (Z86.69) Active confirmed Problem 712408233 Sensorineural hearing loss (SNHL) of both ears (H90.3) Active confirmed Problem Hearing loss, unspecified hearing loss type, unspecified laterality (H91.90) Active confirmed unchanged from prior Problem 032389799584071 Cognitive deficit S/P CVA (cerebrovascula r accident) (I69.319) Active confirmed Vital Signs Heart Rate 95 /min 01/19/2025 Temperature 97.4 degrees Fahrenheit 01/19/2025 Oximetry 96 % 01/19/2025 Height 65.5 in 01/19/2025 Weight 212 lbs 07/25/2024 BMI 34.74 kg/m2 07/25/2024 Encounters Encounter Location Date Provider Diagnosis [facility] ([facility]ODIAT[facility]) [address] [place] [address] [place] [address] 04/28/2024 Teodora Boothe Type 2 diabetes mellitus with diabetic neuropathy, unspecified E11.40 [facility] (PODIATRY) [address] [place] [address] [place] [address] 07/25/2024 Teodora Boothe Type 2 diabetes mellitus with diabetic neuropathy, unspecified E11.40 ; Cognitive deficit S/P CVA (cerebrovascular accident) I69.319 ; Right-sided Zafar's palsy G51.0 ; Dementia F03.90 ; Frequent falls R29.6 and Gait disturbance R26.9 [facility] ([facility]OD[facility]) [address] [place] [address] [place] [address] 10/21/2024 Luca Moran [facility] ([facility]OD[facility]) [address] [place] [address] [place] [address] 01/19/2025 Teodora Boothe Type 2 diabetes mellitus with diabetic neuropathy, unspecified E11.40 Assessments Encounter Date Diagnosis (ICD Code) Assessment Notes Treatment Notes Treatment Clinical Notes Section Notes 04/28/2024 Type 2 diabetes mellitus with diabetic neuropathy, unspecified (ICD-10 - E11.40) The patient is a 63-year-old gentleman with history of type 2 diabetes who presents to establish routine nail care.After verbal consent toenails 1 through 10 were sharply debrided without incident.The patient has dry flaky skin on the heels and bilateral great toes. He does have history of psoriasis. I encouraged him to continue his treatment prescribed by his finishing wire sawyer. He may also add a pumice stone to any rough areas on his feet for exfoliation.Fol low-up in 3 months with a nurse or as needed for routine nail care. 07/25/2024 Type 2 diabetes mellitus with diabetic neuropathy, unspecified (ICD-10 - E11.40) 07/25/2024 Cognitive deficit S/P CVA (cerebrovascular accident) (ICD-10 - I69.319) 01/19/2025 Type 2 diabetes mellitus with diabetic neuropathy, unspecified (ICD-10 - E11.40) 07/25/2024 Right-sided Zafar's palsy (ICD-10 - G51.0) 07/25/2024 Dementia (ICD-10 - F03.90) 07/25/2024 Frequent falls (ICD-10 - R29.6) 07/25/2024 Gait disturbance (ICD-10 - R26.9) Plan Of Treatment Pending Test Test Name Order Date Audiology Screen 06/06/2019 Insurance Providers Payer Name Payer Address Payer Phone Subscriber Number Group Number Insured Name Patient Relationship to Insured Coverage Start Date Coverage End Date [employer] ADV PLAN [address] [place] [address] [id number] [id number] Self - patient is the insured 1 Medical (General) History Medical History History ICD Code History of hypertension History of stroke syndrome Perforated bowel K63.1 hernias colostomy testicular cancer diabetes Hearing loss Surgical History Surgery Date(Month/Year) gallbladder knee replacement 10/29/2015 Bowel 12/2015 left knee replacment 07/2016 left knee scope 2007 testicle cancer 2007 brain biopsy 2012 Hospitalization History Reason Date(Month/Year) [address] 11/28/21 [facility] 06/2019 [facility] Zafar's palsy 03/2019 Urgent care cough 01/2019 [facility] 07/2016 [facility] 12/2015 knee replacment sep
--- OUTSIDE RECORDS SUMMARY | 2025-04-20 14:48 | XMS_ITS | Encounter Summary ---
Author Organization [employer] Address [facility] [id number] [address] [place] [address] Care Team Providers Care Carpenter Refrigerator Name Role Phone Prabhakar Gooden MD Primary Care Provider [phone] Encounter Details Date Type Department Care Team (Late st Contact Info) Description 09/15/2024 Telephone [facility] End[facility] [address] [place] [phone] Jessica Campos, STRIP PRESSER-CASINO CAGE CASHIER [address] [place] [address] Social History Tobacco Use Types Packs/Day Years [...] got money to buy more. Never True 08/24/2024 Within the past 12 months th e food we bought just didn't last and we didn't have money to get more. Never True 08/24/2024 Purpose - Life Answer Date Recorded Purpose and direction in life Unknown Sex and Gender Information Value Date Recorded Sex Assigned at Not on file Legal Sex Male 11:38 AM EDT Gender Identity Not on file Sexual Orientation Not on file documented as of this encounter Miscellaneous Notes * Telephone Encounter - CaitlinDidi Chandler - 09/15/2024 9:13 AM EDT LM that his reader stopped working. Asking about getting another one. I called back, NA. GALINA for call back. * Telephone Encounter - CaitlinDiid Chandler - 09/15/2024 9:13 AM EDT Spoke with and she states he has had the reader maybe alisurendrale over a year. It is a dannie 2 reader and he does not have a smart phone. I suggested she reach out to [employer] for a replacement since it will not turn on. I let her know insurance will not cover this again being that he received the current one about a year ago. She is aware that if we send another script for one it was be an out ofpocket cost. He has testing supplies and poking his finger for now. They will reach out to research & analytics manager and let us know if they need anything from us. documented in this encounter Plan of Treatment Upcoming Encounters Date Type Department Care Team (Late st Contact Info) Description 08/21/2025 8:45 AM EDT Office Visit [facility] Adult Endocrinology, A Department of [facility] [address] [facility] [address] [place] [address] Marcos Enriquez MD [address] [facility], [address] [place] [address] 10/04/2025 1:15 PM EST Office Visit [facility] [address] [place] [address] [place] [address] Michael Solano MD [address] [place] [address] documented as of this encounter Goals Goal [...] documented as of this encounter Care Teams Carpenter Refrigerator Relationship Specialty Start Date End Date Prabhakar Gooden MD [address] [place] [address], [address] [place] [address] PCP - General Pediatrics 08/05/24 documented as of this encounter
--- OUTSIDE RECORDS SUMMARY | 2025-04-20 14:48 | XMS_ITS | Clinical Summary ---
Author Organization [facility] Address [address] [place] [address] Care Team Providers Care Tool Setter Name Role Phone Fatoumata Velazquez Unavailable Maya Nick Unavailable Prabhakar Gooden MD Primary Care Provider [phone] Julia Radford DO Unavailable [phone] Allergies Active Allergy Reactions Criticality Noted Date Comments Hydrocodone-Acetaminophen 04/14/2024 Oxycodone-Acetaminophen 04/14/2024 Medications ezetimibe (Zetia) 10 MG tablet Take 10 mg by mouth Daily Active insulin glargine (Toujeo Max SoloStar) 300 UNIT/ML injection Inject under the skin at bedtime Active insulin lispro (HumaLOG) 100 UNIT/ML patient supplied pump Inject under the skin continuously Active tamsulosin (Flomax) 0.4 MG 24 hr capsule Take 0.4 mg by mouth Daily Active lisinopril 10 MG tablet Take 10 mg by mouth Daily Active allopurinol (Zyloprim) 300 MG tablet Take 300 mg by mouth Daily Active finasteride (Proscar) 5 MG tablet Take 5 mg by mouth Daily Do not crush, chew, or split. Active clopidogrel (Plavix) 75 MG tabletIndicatio ns:History of stroke,Neuropat hy Take 1 tablet (75 mg) by mouth Daily 30 tablet 2 5 Active memantine (Namenda) 10 MG tabletIndicatio ns:Moderate vascular dementia without behavioral disturbance, psychotic disturbance, mood disturbance, or anxiety (CMS/HCC) TAKE 1 TABLET BY MOUTH TWICE A DAY 180 tablet Active Active Problems Problem Noted Date Diagnosed Date General weakness 02/28/2025 History of falling 02/28/2025 Vascular dementia without be havioral disturbance, psychotic disturbance, mood disturbance, or anxiety 04/14/2024 Memory loss 04/14/2024 Cerebrovascular accident 04/14/2024 Polyneuropathy 04/14/2024 Balance problems 04/14/2024 Encounters Date Type Department Care Team Description 03/30/2025 1:30 PM EDT Treatment [facility] [address] [place] [address] Rebeca Aguirre, NENO General weakness (Primary Dx); Balance problems; History of falling 03/30/2025 Bamboo flowsheet [facility] [address] [place] [address] Rebeca Aguirre, NENO 03/30/2025 Travel 03/29/2025 [facility]phone [facility] [address] [place] [phone] Fatoumata Velazquez PA 03/28/2025 1:30 PM EDT Treatment [facility] [address] [place] [address] Rebeca Aguirre PTA General weakness (Primary Dx); Balance problems; History of falling 03/28/2025 Bamboo flowsheet [facility] [address] [place] [address] Rebeca Aguirre, NENO 03/28/2025 Travel 03/23/2025 1:30 PM EDT Treatment [facility] [address] [place] [address] Rebeca Aguirre, NENO General weakness (Primary Dx); Balance problems; History of falling 03/23/2025 Bamboo flowsheet [facility] [address] [place] [address] Rebeca Aguirre, USED CAR SALES SUPERVISOR 03/23/2025 Travel 03/21/2025 1:30 PM EDT Treatment [facility] [address] [place] [address] Rebeca Aguirre, NENO General weakness (Primary Dx); Balance problems; History of falling 03/21/2025 Travel 03/21/2025 Refill [place] [address] [phone] Gladys Hernandez, IVET Moderate vascular dementia without behavioral disturbance, psychotic disturbance, mood disturbance, or anxiety (CMS/HCC) 03/16/2025 1:30 PM EDT Treatment [facility] [address] [place] [address] Danya Heredia, NENO General weakness (Primary Dx); Balance problems; History of falling 03/16/2025 Bamboo flowsheet [facility] [address] [place] [address] Danya Heredia, NENO 03/16/2025 Travel 03/14/2025 3:00 PM EDT Treatment [facility] [address] [place] [address] Danya Heredia, NENO General weakness (Primary Dx); Balance problems; History of falling 03/14/2025 Bamboo flowsheet [facility] [address] [place] [address] Danya Heredia, NENO 03/14/2025 Travel 03/13/2025 8:40 AM EDT Office Visit [address] [phone] Fatoumata Velazquez PA Balance problems (Primary Dx); Moderate vascular dementia without behavioral disturbance, psychotic disturbance, mood disturbance, or anxiety (CMS/HCC); History of stroke; Neuropathy 03/13/2025 Bamboo flowsheet [place] [address] [phone] Fatoumata Velazquez PA 03/09/2025 11:30 AM EDT Treatment [facility] [address] [place] [address] Danya Heredia, NENO General weakness (Primary Dx); Balance problems; History of falling 03/09/2025 Bamboo flowsheet [facility] [address] [place] [address] Danya Heredia, USED CAR SALES SUPERVISOR 03/09/2025 Travel 03/08/2025 Orders Only [facility] [address] [place] [address] [place] [address] Fatoumata Velazquez PA 03/07/2025 11:30 AM EDT Treatment [facility] [address] [place] [address] Rebeca Aguirre, USED CAR SALES SUPERVISOR General weakness (Primary Dx); Balance problems; History of falling 03/07/2025 Travel 03/03/2025 1:30 PM EDT Treatment [facility] [address] [place] [address] Danya Heredia, USED CAR SALES SUPERVISOR General weakness (Primary Dx); Balance problems; History of falling 03/03/2025 Bamboo flowsheet [facility] [address] [place] [address] Danya Heredia, USED CAR SALES SUPERVISOR 03/03/2025 Travel 02/28/2025 12:00 PM EDT Evaluation [facility] [address] [place] [address] Yovany Handley, PT General weakness (Primary Dx); Balance problems; History of falling 02/28/2025 Plan of Care Documentation [facility] [address] [place] [address] 02/28/2025 Bamboo flowsheet [facility] [address] [place] [address] Yovany Handley, PT 02/28/2025 Travel 02/13/2025 9:00 AM EDT Procedure Visit [facility] [place] [address] [place] [phone] PrabhakarJulia morales, DO Numbness and tingling (Primary Dx); Balance problems; Idiopathic peripheral neuropathy 02/13/2025 Telephone [facility] [place] [address] [place] [phone] Julia Radford, DO 02/13 LMTC x1 02/13/2025 Bamboo flowsheet [facility] [address] [phone] Prabhakar Julia, DO 02/06/2025 8:40 AM EDT Office Visit [facility] [address] [phone] Fatoumata Velazquez PA Moderate vascular dementia without behavioral disturbance, psychotic disturbance, mood disturbance, or anxiety (CMS/HCC) (Primary Dx); Balance problems; Memory loss 02/06/2025 Bamboo flowsheet [facility] [address] [phone] Fatoumata Velazquez PA from Last 3 Months Family History Medical History Relation Name Comments Cancer Father Diabetes Father Asthma Mother Cancer Mother Cancer Other Siblings Diabetes Other Siblings Relation Name Status Comments Father Mother Other Siblings Social History Tobacco Use Types Packs/Day Years Used Date Smoking Tobacco: Former Cigarettes Smokeless Tobacco: Never Sex and Gender Information Value Date Recorded Sex Assigned at Not on file Legal Sex Male 7:07 PM EDT Gender Identity Not on file Sexual Orientation Not on file Last Filed Vital Signs Vital Sign Reading Time Taken Comments Blood Pressure 110/68 03/13/2025 8:46 AM EDT Pulse 95 03/13/2025 8:46 AM EDT Temperature - - Respiratory Rate 16 03/13/2025 8:46 AM EDT Oxygen Saturation 97% 03/13/2025 8:46 AM EDT Inhaled Oxygen Concentration - - Weight 93 kg (205 lb) 03/13/2025 8:46 AM EDT Height 165.1 cm (5' 5 ) 03/13/2025 8:46 AM EDT Body Mass Index 34.11 03/13/2025 8:46 AM EDT Plan of Treatment Upcoming Encounters Date Type Department Care Team (Late st Contact Info) Description 06/29/2025 9:40 AM EDT Office Visit [facility] [address] [phone] Maya Herzog NP [address] Health Maintenance Due Date Last Done Comments CT Colonography 1959 Colonoscopy 1959 Colorectal Cancer Screening 1959 FIT-DNA 1959 FIT 1959 FOBT 1959 Sigmoidoscopy 1959 Pneumococcal Vaccine: 65+ Years Completed 3, 08/20/2009 Influenza Vaccine Completed 09/06/2024, , 10/02/2022, Additional history exists Procedures Procedure Name Priority Date/Time Associated Diagnosis Comments CT ANGIOGRAM NECK Routine 04/20/2025 8:2 8 AM EDT Cerebrovascular accident (CVA), unspecified mechanism (CMS/HCC) MRI HEAD/BRAIN WO CONTRAS Routine 03/08/2025 11:06 AM EDT [facility] NVC 9-10 NERVES Routine 02/13/2025 10:54 AM EDT Balance problems Numbness and tingling [facility] EMG 2 EXTREMITIES Routine 02/13/2025 10:53 AM EDT Balance problems Numbness and tingling Idiopathic peripheral neuropathy from Last 3 Months Results * CT angiogram neck (04/20/2025 8:28 AM EDT) Fatoumata HURTADO IMG CT PROCEDURES Final Result [address] [address], * MRI HEAD/BRAIN WO CONTRAS (03/08/2025 11:06 AM EDT) Anatomical Region Laterality Modality Radiographic Alise ging us Fatoumata HURTADO IMG XR PROCEDURES Final Result * NVC 9-10 Nerves (02/13/2025 10:54 AM EDT) Narrative Julia Radford DO - 02/13/2025 10:54 AM EDT EMG/NCS BLE Right superfiscial peroneal sensory neuropathy Probable early demyel changes possible neuropathy clinical correlation is required. us Julia Radford DO NEUROLOGY ORDERABLES Edited Res ult - Final * EMG 2 Extremities (02/13/2025 10:53 AM EDT) Narrative Julia Radford DO - 02/13/2025 10:53 AM EDT EMG/NCS BLE Right superfiscial peroneal sensory neuropathy Probable early demyel changes possible neuropathy clinical correlation is required. Fatoumata HURTADO NEUROLOGY ORDERABLES Final Resul t from Last 3 Months Insurance [employer] Care Teams Tool Setter Relationship Specialty Start Date End Date Prabhakar Gooden MD [address] [place] [address], [address] [place], [place] [phone] PCP - General Family Medicine 02/13/25 Fatoumata Velazquez PA [address] [place] [address] Physician Small Machine Bindery Operator Neurology 09/28/24 Maya Nick PA [address] [place] [address] Physician Small Machine Bindery Operator Neurology 09/28/24 Julia Radford DO [address] [place] [address] Referring Physician Neurology 02/13/25
--- OUTSIDE RECORDS SUMMARY | 2025-04-20 14:48 | XMS_ITS | Encounter Summary ---
Author Organization [facility] [employer] [facility] tem Address [id number] [address] [place] [address] Care Team Providers Care Service Center Specialist Name Role Phone Prabhakar Gooden MD Primary Care Provider [phone] Encounter Details Date Type Department Care Team (Late Contact Info) Description 08/08/2022 Orders Only [facility] Internal Medicine/Pediatrics [address] [place] [phone] External, Scanning Provider Social History Tobacco Use [...] Description 08/21/2025 8:45 AM EDT Office Visit [facility] Adult Endocrinology, A Department of [facility] [address] [place] [phone] Marcos Enriquez MD [address] [place] [address] 10/04/2025 1:15 PM EST Office Visit [facility] [address] [place] [address] [place] [address] [place] [address] Michael Solano MD [address] [place] [address] documented as of this encounter Goals Goal [...] Date/Time Associated Diagnosis Comments HEMOGLOBIN A1C Routine 07/30/2022 documented in this encounter Results * (ABNORMAL) Hemoglobin A1c (07/30/2022) External Hemoglobin A1C 7.7(A) 4 - 6 % MANUALLY TRANSCRIBED RESULTS Comment:result in endocrinol ogy consult 07/30/2022 us Scanning Provider External LAB BLOOD ORDERABLES Final Result MANUALLY TRANSCRIBED RESULTS documented in this encounter Visit Diagnoses Not on filedocumented in this encounter Additional Health Concerns Infection Onset Date Last Indicated Resolved Time Respiratory Rule-Out 01/28/2025 01/28/2025 025 2:37 AM EST Assessment Noted Time PHQ-9 Depression Total Score: 0 02/04/20 22 1:00 PM EST documented as of this encounter Care Teams Service Center Specialist Relationship Specialty Start Date End Date Prabhakar Gooden MD [address] [place] [address], [address] [place], [place] [phone] PCP - General Pediatrics 08/05/24 documented as of this encounter
--- OUTSIDE RECORDS SUMMARY | 2025-04-20 14:48 | XMS_ITS | Encounter Summary ---
Author Organization [facility] [employer] [facility] tem Address [id number] [address] [place] [address] Care Team Providers Care Divorce Mediator Name Role Phone Prabhakar Gooden MD Primary Care Provider [phone] Encounter Details Date Type Department Care Team (Late Contact Info) Description 12/24/2021 Orders Only [facility] Internal Medicine/Pediatrics [address] [place] [phone] External, Scanning Provider Social History Tobacco Use [...] Description 08/21/2025 8:45 AM EDT Office Visit [facility] Adult Endocrinology, A Department of [facility] [address] [place] [phone] Marcos Enriquez MD [address] [place] [address] 10/04/2025 1:15 PM EST Office Visit [facility] [address] [place] [address] [place] [address] Michael Solano MD [address] [place] [address] documented as of this encounter Goals Goal [...] Procedure Name Priority Date/Time Associated Diagnosis Comments COLONOSCOPY Routine 02/23/2014 documented in this encounter Results * COLONOSCOPY (02/23/2014) 02/23/2014 us Scanning Provider External HEALTH MAINTENANCE Fi nal Result [facility] EXTERNAL NON-INTERFACED REF LAB [address] [place] [address] documented in this encounter Visit Diagnoses Not on filedocumented in this encounter Additional Health Concerns Infection Onset Date Last Indicated Resolved Time Respiratory Rule-Out 01/28/2025 01/28/2025 025 2:37 AM EST Assessment Noted Time PHQ-9 Depression Total Score: 0 12/13/19 21 3:25 PM EST documented as of this encounter Care Teams Divorce Mediator Relationship Specialty Start Date End Date Prabhakar Gooden MD [facility], [address] [place], [place] [phone] PCP - General Pediatrics 08/05/24 documented as of this encounter
--- OUTSIDE RECORDS SUMMARY | 2025-04-20 14:48 | XMS_ITS | Encounter Summary ---
Author Organization [facility] [employer] [facility] tem Address [id number] [address] [place] [address] Care Team Providers Care Raw Mill Operator Name Role Phone Prabhakar Gooden MD Primary Care Provider [phone] Encounter Details Date Type Department Care Team (Late Contact Info) Description 09/24/2022 Orders Only [facility] Internal Medicine/Pediatrics [address] [place] [address] External, Scanning Provider Social History Tobacco Use [...] Description 08/21/2025 8:45 AM EDT Office Visit [facility] Adult Endocrinology, A Department of [facility] [address] [place] [phone] Marcos Enriquez MD [address] [place] [address] 10/04/2025 1:15 PM EST Office Visit [facility] [address] [place] [address] [place] [address] Michael Solano MD [address] [place] [address] documented as of this encounter Goals Goal [...] Date/Time Associated Diagnosis Comments HEMOGLOBIN A1C Routine 09/23/2022 documented in this encounter Results * Hemoglobin A1c (09/23/2022) External Hemoglobin A1C 7.8 % MANUALLY TRANSCRIBED RESULTS Comment:results located in e ndocrinology consult 09/23/2022 us Scanning Provider External LAB BLOOD ORDERABLES Edited Result - Final MANUALLY TRANSCRIBED RESULTS documented in this encounter Visit Diagnoses Not on filedocumented in this encounter Additional Health Concerns Infection Onset Date Last Indicated Resolved Time Respiratory Rule-Out 01/28/2025 01/28/2025 025 2:37 AM EST Assessment Noted Time PHQ-9 Depression Total Score: 0 02/04/20 22 1:00 PM EST documented as of this encounter Care Teams Raw Mill Operator Relationship Specialty Start Date End Date Prabhakar Gooden MD [address] [place] [address], [address] [place] [address] PCP - General Pediatrics 08/05/24 documented as of this encounter
--- OUTSIDE RECORDS SUMMARY | 2025-04-20 14:48 | XMS_ITS | Encounter Summary ---
Author Organization [facility] Address [address] [place] [address] Care Team Providers Care Mail Distribution Clerk Name Role Phone Henry Julian MD Unavailable Unavailable Fatoumata Velazquez Unavailable Maya Nick Unavailable Prabhakar Gooden MD Primary Care Provider [phone] Julia Radford DO Unavailable [phone] Encounter Details Date Type Department Care Team (Late st Contact Info) Description 03/08/2025 Orders Only [facility] [address] [place] [address] Fatoumata Velazquez PA [address] [place] [address] Social History Tobacco Use Types Packs/Day Years [...] EDT Office Visit [facility] [address] [place] [address] Maya Hrezog NP [address] [place], [place] documented as of this encounter Procedures Procedure Name Priority Date/Time Associated Diagnosis Comments MRI HEAD/BRAIN WO CONTRAS Routine 03/08/2025 11:06 AM EDT documented in this encounter Results * MRI HEAD/BRAIN WO CONTRAS (03/08/2025 11:06 AM EDT) Anatomical Region Laterality Modality Radiographic Alise ging Fatoumata HURTADO IMG XR PROCEDURES Final Result documented in this encounter Visit Diagnoses Not on filedocumented in this encounter Care Teams Mail Distribution Clerk Relationship Specialty Start Date End Date Prabhakar Gooden MD [address] [place] [address], [address] [place] [address] PCP - General Family Medicine 02/13/25 Henry Julian MD Referring Physician Neurology 09/28/24 03/12/25 Fatoumata Velazquez PA [address] [place] [address] Physician Merchant Mill Utility Worker Neurology 09/28/24 Maya Nick PA [address] [place] [address] Physician Merchant Mill Utility Worker Neurology 09/28/24 Julia Radford DO [address] [place], [place] [phone] Referring Physician Neurology 02/13/25 documented as of this encounter
--- NOTE | 2025-04-20 15:17 | PM.WCHP ---
Wound Care H&P: HPI History of Present Illness Narrative: The patient is a pleasant 64-year-old gentleman with history of type 2 diabetes. Last hemoglobin A1c was 7.0. He presents today for routine nail care. He has no complaints in regards to his feet at this time. Exam Narrative: Exam Narrative: Derm: Left 5th toenail is absent. Remaining toenails are thickened, elongated, and painful.? No evidence of paronychia.? Skin is diffusely dry.? Vascular: DP and PT pulses are nonpalpable bilaterally.? Capillary refill is less than 3 seconds to all toes. Digital hair is absent bilaterally. Superficial varicosities are present. Neuro: Vibratory sensation is present but decreased bilaterally.? Achilles deep tendon reflex is 1+ bilaterally.? Protective sensation was tested with a monofilament and is present in 3/5 areas tested on the right and 5/5 areas tested on the left.? Musculoskeletal: No gross deformity.? Strength 5/5 in all planes bilaterally Assessment and Plan Assessment and Plan (1) Tinea unguium: (2) Nail dystrophy: (3) Diminished pulses in lower extremity: (4) Type 2 diabetes mellitus with diabetic neuropathy, unspecified: Plan Routine nail care performed. Follow-up in 3 months or as needed. Acute Procedures Podiatry Nail Debridement Class B Findings Absent posterior tibial pulse: bilateral Advanced trophic changes as evidenced by any three of the following: decreased hair growth and nail changes (thickening) Absent dorsalis pedis pulse: bilateral Class C Findings Claudication: No Temperature changes: No Edema: No Nail debridement paresthesia (abnormal spontaneous sensations in the feet): No Burning: No Qualifies If: Qualifiers If:: A patient qualifies for nail debridement if they have: 1 class A finding (Q7) 2 class B findings (Q8) OR 1 class B & 2 class C findings in addition to a primary condition (Q9) Nail Procedure Nail Procedure Time out: Yes Nail procedure: other (Toenail debridement) Number of affected nails: 9 Location (toes): left and right Patient tolerated procedure: well and no complications Additional comments: The patient is 9 remaining toenails were sharply debrided with nail nippers without incident. He noted pain relief postprocedure.
== END 2025-04-20 14:46 | disposition home or self-care (01) ==
LOC: WC 14:45
PROVIDERS: PCP Physician Assistant; Visit Provider Physician Assistant
DX: B35.1 Tinea unguium (principal); L60.3 Nail dystrophy; I70.213 Atherosclerosis of native arteries of extremities with intermittent claudication, bilateral legs; E11.40 Type 2 diabetes mellitus with diabetic neuropathy, unspecified
CPT/HCPCS: 11721

== ENCOUNTER 2025-07-20 14:38 | Outpatient (OUT) | payer MEDICARE, SELFPAY ==
--- NOTE | 2025-07-20 15:46 | PM.WCHP ---
Wound Care H&P: HPI History of Present Illness Narrative: The patient is a pleasant 64-year-old gentleman with history of type 2 diabetes. He presents today for routine nail care. He has no complaints in regards to his feet at this time. Exam Narrative: Exam Narrative: Derm: Left 5th toenail is absent. Remaining toenails are thickened, elongated, and mycotic.? No evidence of paronychia.? Skin is diffusely dry.? Vascular: DP and PT pulses are nonpalpable bilaterally.? Capillary refill is less than 3 seconds to all toes. Digital hair is absent bilaterally. Superficial varicosities are present. Neuro: Vibratory sensation is present but decreased bilaterally.? Achilles deep tendon reflex is 1+ bilaterally.? Protective sensation was tested with a monofilament and is present in 3/5 areas tested on the right and 5/5 areas tested on the left.? Musculoskeletal: No gross deformity.? Strength 5/5 in all planes bilaterally Assessment and Plan Assessment and Plan (1) Tinea unguium: (2) Nail dystrophy: (3) Diminished pulses in lower extremity: (4) Type 2 diabetes mellitus with diabetic neuropathy, unspecified: Plan Routine nail care performed. Follow-up in 3 months or as needed. Acute Procedures Podiatry Nail Debridement Class B Findings Absent posterior tibial pulse: bilateral Advanced trophic changes as evidenced by any three of the following: decreased hair growth and nail changes (thickening) Absent dorsalis pedis pulse: bilateral Class C Findings Claudication: No Temperature changes: No Edema: No Nail debridement paresthesia (abnormal spontaneous sensations in the feet): No Burning: No Qualifies If: Qualifiers If:: A patient qualifies for nail debridement if they have: 1 class A finding (Q7) 2 class B findings (Q8) OR 1 class B & 2 class C findings in addition to a primary condition (Q9) Nail Procedure Nail Procedure Time out: Yes Nail procedure: other (Toenail debridement) Number of affected nails: 9 Location (toes): left and right Patient tolerated procedure: well and no complications Additional comments: The patient is 9 remaining toenails were sharply debrided with nail nippers without incident. He noted pain relief postprocedure.
== END 2025-07-20 14:39 | disposition home or self-care (01) ==
LOC: WC 14:38
PROVIDERS: Visit Provider Physician Assistant
DX: B35.1 Tinea unguium (principal); L60.3 Nail dystrophy; R09.89 Other specified symptoms and signs involving the circulatory and respiratory systems; E11.40 Type 2 diabetes mellitus with diabetic neuropathy, unspecified
CPT/HCPCS: 11721

== ENCOUNTER 2025-10-19 14:39 | Outpatient (OUT) | payer MEDICARE, SELFPAY ==
--- NOTE | 2025-10-19 15:07 | PM.WCHP ---
Wound Care H&P: HPI History of Present Illness Narrative: The patient is a pleasant 64-year-old gentleman with history of type 2 diabetes. He presents today for routine nail care. He complains of pain in his toes related to long toenails. Exam Narrative: Exam Narrative: Derm: Left 5th toenail is absent. Remaining toenails are thickened, elongated, and mycotic.? No evidence of paronychia.? Skin is diffusely dry.? Vascular: DP and PT pulses are nonpalpable bilaterally.? Capillary refill is less than 3 seconds to all toes. Digital hair is absent bilaterally. Superficial varicosities are present. Neuro: Vibratory sensation is present but decreased bilaterally.? Achilles deep tendon reflex is 1+ bilaterally.? Protective sensation was tested with a monofilament and is present in 3/5 areas tested on the right and 5/5 areas tested on the left.? Musculoskeletal: No gross deformity.? Strength 5/5 in all planes bilaterally Assessment and Plan Assessment and Plan (1) Tinea unguium: (2) Nail dystrophy: (3) Diminished pulses in lower extremity: (4) Type 2 diabetes mellitus with diabetic neuropathy, unspecified: Plan Routine nail care performed. Follow-up in 3 months or as needed. Acute Procedures Podiatry Nail Debridement Class B Findings Absent posterior tibial pulse: bilateral Advanced trophic changes as evidenced by any three of the following: decreased hair growth and nail changes (thickening) Absent dorsalis pedis pulse: bilateral Class C Findings Claudication: No Temperature changes: No Edema: No Nail debridement paresthesia (abnormal spontaneous sensations in the feet): No Burning: No Qualifies If: Qualifiers If:: A patient qualifies for nail debridement if they have: 1 class A finding (Q7) 2 class B findings (Q8) OR 1 class B & 2 class C findings in addition to a primary condition (Q9) Nail Procedure Nail Procedure Time out: Yes Nail procedure: other (Toenail debridement) Number of affected nails: 9 Location (toes): left and right Patient tolerated procedure: well and no complications Additional comments: The patient is 9 remaining toenails were sharply debrided with nail nippers without incident. He noted pain relief postprocedure.
== END 2025-10-19 14:40 | disposition home or self-care (01) ==
LOC: WC 14:39
PROVIDERS: Visit Provider Physician Assistant
DX: B35.1 Tinea unguium (principal); L60.8 Other nail disorders; R09.89 Other specified symptoms and signs involving the circulatory and respiratory systems; E11.40 Type 2 diabetes mellitus with diabetic neuropathy, unspecified
CPT/HCPCS: 11721